=== PATIENT | female | born 1980 | race Caucasian/White ===

== ENCOUNTER 2021-05-11 13:41 | Emergency (ER) | payer OTHER, SELFPAY ==
--- NOTE | ~2021-05-11 | XR_ITS ---
EXAMINATION: XR LUMBOSACRAL SPINE CLINICAL INFORMATION: Low back pain COMPARISON: Radiographs lumbar spine 07/28/2016 TECHNIQUE: Three views of the lumbosacral spine. FINDINGS: The lateral views are obtained with patient slightly rotated. There is a mild levocurvature lumbar spine similar to prior study 2016. There is normal lumbar segmentation with 5 nonrib-bearing lumbar vertebrae of normal height. There is no lumbar vertebral compression, spondylolisthesis, or erosive changes. No destructive process. The SI joints and visualized sacrum are unremarkable. There are questionable faint calcifications overlying renal fossa region versus density from calcified mesenteric lymph node or bowel contents. Surgical clips right upper quadrant abdomen are consistent with prior cholecystectomy. XR/XR lumbar spine 2-3V IMPRESSION: 1. Mild chronic levocurvature. No lumbar vertebral compression, spondylolisthesis, disc narrowing. 2. Question faint renal calcifications.
[2021-05-11 13:46] VITALS: BP 130/83; PULSE 98; RESP 18; TEMP 36.8; O2SAT 98; BMI 33.2
[2021-05-11] MEDS: Ibuprofen 600 MG TABLET PO (13:50)
--- NOTE | 2021-05-11 15:09 | ED_ITS ---
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) Associated symptoms: denies other symptoms Treatments prior to arrival: NSAIDS Work related injury: No Related Data Previous Rx's Medication Instructions Recorded diazepam 5 mg tablet (Valium) 5 mg PO TID PRN #10 tab 05/11/21 ibuprofen 600 mg tablet 600 mg PO Q6H PRN #30 tab 05/11/21 lidocaine 4 % topical patch 1 patch TOPICAL DAILY PRN #10 ea 05/11/21 Allergies Allergy/AdvReac Type Severity Reaction Status Date / Time No Known Allergies Allergy Unverified 06/26/20 15:00 [No Known Allergies*] Review of Systems Review of Systems: Constitutional : No Weight loss, No Fever, No Chills, ENT/Mouth : No Hearing loss, No Ear Pain, No Nasal Congestion, No Sinus Pain, No Hoarseness, No sore throat, No Rhinorrhea, No Swallowing Difficulty Cardiovascular : No Chest Pain, No SOB Respiratory : No Cough, No Dyspnea Gastrointestinal : No Nausea, No Vomiting, No Diarrhea, No abdominal Pain, No Hematochezia, No Melena Genitourinary : No Dysuria, No Urinary Frequency, No Hematuria, No Urinary Incontinence, Musculoskeletal : positive back pain Skin : No Skin Lesions, No rash Neuro : No Weakness, No Numbness, No Paresthesias, no loss of bowel or bladder incontinence, no saddle anesthesia [facility] Past Medical History Medical History (Updated 05/11/21 @ 15:32 by Cassia Ruggiero DO) Chronic back pain No known health problems Scoliosis Surgical History (Updated 05/11/21 @ 15:32 by Cassia Ruggiero DO) H/O tubal ligation Social History Social History (Updated 05/11/21 @ 15:29 by Cassia Ruggiero DO) Patient Tobacco Use Status: Tobacco use Unknown Use of substances other than those prescribed or required for medical reasons: No Advance Directives: No Advance Directives Information Provided: No Patient : No Physical Exam Vital Signs: Vital Signs: Last Vital Signs Temp 98.2 F 05/11/21 13:46 Pulse 98 05/11/21 13:46 Resp 18 05/11/21 13:46 BP 130/83 05/11/21 13:46 Pulse Ox 98 05/11/21 13:46 Body Mass Index 33.2 Appearance: Alert. Oriented X3. No acute distress. Eyes: Pupils equal, round and reactive to light. ENT: Pharynx normal. Neck: Normal inspection. Neck supple. CVS: Normal heart rate and rhythm. Pulses normal. Respiratory: No respiratory distress. Breath sounds normal. Abdomen: Soft and nontender. Back: ttp middle area of lower lumbar Skin: Skin warm and dry. Normal skin color. Normal skin turgor. Extremities: No lower extremity edema. No calf ttp 5/5 strength, 2+ patellar tendon reflexes, SILT throughout Neuro: Oriented X 3. No motor deficit. No sensory deficit. Course Course Course Narrative: pain is midline, no urinary symptoms doubt renal colic MDM - Back Pain/Injury MDM Narrative Medical decision making narrative: 40 yo female no IVDA< hx of back pain and scoliosis comes in with low back pain acute on chronic she is NV intact, no CE symptoms, valium, motrin and lidocaine patches ordered, xrays to see if any progression or signs of advanced degenerative disease Discharge Plan Discharge Clinical Impression: Lumbar back pain Patient Disposition: Home, Self-Care Instructions: Acute Low Back Pain (ED) Additional Instructions: return to ED for any worsening symptoms or concerns Prescriptions: New diazepam [Valium] 5 mg tablet 5 mg PO TID PRN (Reason: muscle spasm) Qty: 10 RF: 0 ibuprofen 600 mg tablet 600 mg PO Q6H PRN (Reason: pain) Qty: 30 RF: 0 lidocaine 4 % adhesive patch,medicated 1 patch topical DAILY PRN (Reason: pain) Qty: 10 RF: 0 Referrals: Tyra Doshi MD [Primary Care Provider] - 3 days (if not better) Stand Alone Forms: Work/School Release
[2021-05-11] MEDS: diazePAM 5 MG TABLET PO (15:49)
[2021-05-11] MEDS: Lidocaine 4 % Patch ADH..PATCH 1 PATCH TRANSDERMA (15:49)
== END 2021-05-11 16:36 | disposition home or self-care (01) ==
PROVIDERS: Emergency Provider Emergency Medicine; PCP Pediatrics
DX: M54.5 Low back pain (principal); M41.9 Scoliosis, unspecified
CPT/HCPCS: 72100; 99283

== ENCOUNTER 2021-05-20 07:28 | Emergency (ER) | payer OTHER, SELFPAY ==
[2021-05-20 07:29] VITALS: BP 128/69; PULSE 96; RESP 16; TEMP 35.8; O2SAT 98; BMI 33.2
--- NOTE | 2021-05-20 08:04 | ED_ITS ---
HPI - Back Pain/Injury General Chief Complaint: Back Pain/Injury Stated Complaint: back pain Time Seen by Provider: 05/20/21 07:52 Source: patient Mode of arrival: ambulatory Limitations: no limitations History of Present Illness HPI Narrative: 40-year-old female who presents emergency department for evaluation of lower back pain. Patient states that she has had the pain for approximately 1 week. She does not remember any injury. She was seen here in the emergency department on 05/11/2021 with similar pain. She was treated with ibuprofen, lidocaine patches and Valium with no relief for pain. She has also been alternating heat and ice with no relief for pain. is currently complaining of pain in her lower back. She states the pain is a constant, sharp pain which does radiate down both legs. She states the pain is worse in the right leg than in the left leg. The pain in her back is 10/10. The pain is worse with movement and is relieved if she lies still. She states that her right leg did give out on her yesterday but she denies any weakness today. She denied any loss of bowel or bladder control. She denied fever, chills, chest pain, shortness of breath, nausea, vomiting or diarrhea. She denies injection drug use. Related Data Previous Rx's Medication Instructions Recorded diazepam 5 mg tablet (Valium) 5 mg PO TID PRN #10 tab 05/11/21 ibuprofen 600 mg tablet 600 mg PO Q6H PRN #30 tab 05/11/21 lidocaine 4 % topical patch 1 patch TOPICAL DAILY PRN #10 ea 05/11/21 cyclobenzaprine 10 mg tablet 10 mg PO TID PRN #15 tab 05/20/21 morphine 15 mg immediate release 15 mg PO Q4-6H PRN #6 tab 05/20/21 tablet prednisone 20 mg tablet 60 mg PO DAILY 7 Days #21 tab 05/20/21 Allergies Allergy/AdvReac Type Severity Reaction Status Date / Time No Known Allergies Allergy Unverified 06/26/20 15:00 [No Known Allergies*] Review of Systems Review of Systems: Yes all other systems are reviewed and are negative [facility] Past Medical History [facility] Narrative: Past medical history: Scoliosis. Past surgical history: Cholecystectomy, . Social history: The patient is employed. She smokes less than 1 pack of cigarettes per day times 10 years. She denies alcohol use. She denies drug use. Medical History (Updated 05/20/21 @ 08:15 by Kurt Garcia MD) Chronic back pain No known health problems Scoliosis Surgical History (Updated 05/11/21 @ 15:32 by Cassia Ruggiero DO) H/O tubal ligation Social History Social History (Updated 05/11/21 @ 15:29 by Cassia Ruggiero DO) Patient Tobacco Use Status: Tobacco use Unknown Advance Directives: No Advance Directives Information Provided: No Physical Exam Vital Signs: Vital Signs: Last Vital Signs Temp 96.5 F L 05/20/21 07:29 Pulse 96 05/20/21 07:29 Resp 16 05/20/21 07:29 BP 128/69 05/20/21 07:29 Pulse Ox 98 05/20/21 07:29 Body Mass Index 33.2 Const: Other: Very pleasant and cooperative female, appears to be in distress secondary to her pain, has difficulty moving on the stretcher secondary to pain and spasm of her back HENMT: Head: Yes normal to inspection, Yes normocephalic and Yes atraumatic Ears: external ears normal General nose exam: Normal external nose present Face and sinus: Yes normal facial exam Mouth: Normal oral and palatal mucosa present Throat: Yes posterior oropharynx normal Eyes: General: appearance normal, both eyes and all related structures Pupils: Equal, round and reactive pupils present Neck: Neck: Yes normal visual inspection, Yes no lymphadenopathy, Yes trachea midline and Yes supple Chest: Chest palpation & inspection: normal inspection of the chest and normal palpation of entire chest wall Resp: Effort & Inspection: normal respiratory effort and able to speak in complete sentences Auscultation: clear to auscultation bilaterally Cardio: Rate: regular rate Rhythm: regular rhythm Heart sounds: S1 normal heart sound present, S2 normal heart sound present and no murmurs GI: Inspection: Yes normal to inspection Palpation (GI): Soft to palpation, nontender and no guarding Auscultation: normal bowel sounds : General: Yes no CVA tenderness Back/Spine/Pelvis: Back: no CVA tenderness Thoracic/Lumbar Spine: thoracic and lumbar spine normal to inspection, paraspinal muscle tenderness bilaterally in the mid lumbar and in the lower lumbar, thoraco-lumbar spasm bilaterally in the mid lumbar and in the lower lumbar, lumbar spinal tenderness at L1, at L2, at L3, at L4 and at L5 and straight leg raise positive right Skin: General skin exam: no rashes or lesions noted Neuro: Cranial nerves: Yes CN's II-XII intact bilaterally and Yes Equal, round and reactive pupils present Cognition (Neuro): normal cognition Motor exam (neuro): 5/5 motor strength present throughout Extrem: General: Yes normal to inspection Psych: Appearance: grossly normal Speech and movement: Normal speech and movement present Affect: normal affect Attitude: cooperative Thought process: Normal thought process present Thought content: Normal thought content present Course Course Course Narrative: 40-year-old female who presents emergency department for evaluation of lower back pain that radiates down both legs right greater than left x1 week. Patient had no known injury. The patient was seen 1 week prior in the emergency department treated with ibuprofen, Valium and lidocaine patches with no relief for pain. Patient does appear to be in distress secondary to her pain. Physical examination did reveal tenderness with palpation of the lumbar spine as well as the paraspinal muscles in lumbar sacral area, she also has spasm of these muscles. Patient does have a positive right straight leg raise. The patient has a nonfocal neurologic exam. Patient most likely has musculoskeletal strain versus sciatica. Patient was advised to stop taking ibuprofen. She was started on prednisone 60 mg once a day for 7 days. She was advised to stop Valium and she was started on Flexeril 10 mg 3 times a day as needed for pain and spasm. Patient was given a limited dose of morphine 15 mg pills, 1 pill every 4-6 hours as needed for pain not relieved by prednisone and by Tylenol. Patient was given a work note not return to work in 1 week. The patient was given verbal and printed instructions prior to discharge. The patient was advised to follow-up with her PCP in 2 days and to return to the emergency department if her symptoms get worse or if she develops any new symptoms that are concerning to her. Discharge Plan Discharge Clinical Impression: Muscle spasm Strain of lumbar region Qualifiers: Encounter type: subsequent encounter Qualified Code(s): S39.012D - Strain of muscle, fascia and tendon of lower back, subsequent encounter Sciatica Qualifiers: Laterality: right Qualified Code(s): M54.31 - Sciatica, right side Patient Disposition: Home, Self-Care Instructions: Sciatica (ED) Additional Instructions: Back Pain Discharge Instructions: Take prednisone 20 mg pills, 3 pills once a day for 7 days. This is a strong anti-inflammatory pain medication. While you are taking prednisone do not take any NSAIDs (Motrin, Advil, ibuprofen, Aleve, naproxen). Take Tylenol (acetaminophen) 500 mg pills, 2 pills every 6 hours as needed for pain. Take Flexeril (cyclobenzaprine) 10 mg pills, 1 pill every 8 hours as needed for pain or muscle spasm. This is a prescription medication. This medication will make you sleepy, therefore do not drive or work while taking this medication. Stop taking Valium (diazepam) while you are taking cyclobenzaprine. For pain not relieved by prednisone or Tylenol take morphine 15 mg pills, 1 pill every 4 hours as needed for pain. This medication will make you sleepy, do not drive or work while taking this medication. Morphine is a narcotic medication and can be addicting. If you are concerned about addiction you can ask the pharmacist for less pills or do not get this prescription filled. Apply ice for 15 minutes to the area that hurts on your back, then apply a heating a pad on low for 15 minutes. Do this 4-6 times a day to help reduce the pain in your back. Continue with normal activities as tolerated since staying in bed and not moving around will make your pain worse. You can also try over the counter lidocaine patches as directed on the box to help with the pain. Please return to the Emergency Department or see your doctor immediately if your symptoms get worse or if you develop any new symptoms that are concerning you. Follow up with your doctor in 2 day. Please read the other printed discharge instructions on back pain. Prescriptions: New cyclobenzaprine 10 mg tablet 10 mg PO TID PRN (Reason: pain, muscle spasm) Qty: 15 RF: 0 prednisone 20 mg tablet 60 mg PO DAILY 7 Days Qty: 21 RF: 0 morphine 15 mg tablet 15 mg PO Q4-6H PRN (Reason: pain) Qty: 6 RF: 0 No Action diazepam [Valium] 5 mg tablet 5 mg PO TID PRN (Reason: muscle spasm) Qty: 10 RF: 0 ibuprofen 600 mg tablet 600 mg PO Q6H PRN (Reason: pain) Qty: 30 RF: 0 lidocaine 4 % adhesive patch,medicated 1 patch topical DAILY PRN (Reason: pain) Qty: 10 RF: 0 Stand Alone Forms: Work/School Release
== END 2021-05-20 08:31 | disposition home or self-care (01) ==
PROVIDERS: Emergency Provider Emergency Medicine Emergency Medical Services
DX: M62.838 Other muscle spasm (principal); M54.31 Sciatica, right side; S39.012D Strain of muscle, fascia and tendon of lower back, subsequent encounter; X58.XXXD Exposure to other specified factors, subsequent encounter
CPT/HCPCS: 99283

== ENCOUNTER 2021-10-25 11:46 | Emergency (ER) | payer OTHER, SELFPAY ==
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
[2021-10-25 12:06] VITALS: BP 154/78; PULSE 108; RESP 16; TEMP 36; O2SAT 97; BMI 35.2
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
[2021-10-25] MEDS: Acetaminophen 325 MG TABLET 975 MG PO (12:33)
== END 2021-10-25 14:00 | disposition home or self-care (01) ==
PROVIDERS: Emergency Provider Emergency Medicine
DX: S09.90XA Unspecified injury of head, initial encounter (principal); S80.02XA Contusion of left knee, initial encounter; M25.562 Pain in left knee; M25.561 Pain in right knee; V43.52XA Car driver injured in collision with other type car in traffic accident, initial encounter; Y93.9 Activity, unspecified; Y92.410 Unspecified street and highway as the place of occurrence of the external cause; Y99.9 Unspecified external cause status; Z79.899 Other long term (current) drug therapy
CPT/HCPCS: 70450; 99284

== ENCOUNTER 2023-10-05 14:21 | Outpatient (AMB) | payer OTHER, SELFPAY ==
[2023-10-05 14:37] VITALS: BMI 39.2
--- NOTE | 2023-10-05 14:37 | MHC.AMNUTRGE ---
Intake VS Expanded 10/05/23 14:37 10/17/23 10:53 Height 5 ft 5 ft Weight 200 lb 13.458 oz 201 lb BMI 39.2 39.3 Intake Visit Reasons: Obesity & Pre DM/LVM Allergies No Known Allergies [No Known Allergies*] Allergy (Unverified 06/26/20 15:00) HPI Nutrition Presentation Details Pt presents for MNT for pre diabetes, severely obese. The Pt was referred by SHERIE Rucker/ Dr. Lizzeth Real from [facility] food frequency fish: 0/wk fruits: 0/day vegetables: 2 x/wk (salad/green beans) dairy: not including milk d/t lactose intolerance, avoids alternatives as well physical activity: on feet at work smoking: quit 2 years (reports weight was 150 lbs 2 years ago prior to quitting) ETOh: does not drink iron supplement : reports taking 2 times/day YIV-Jczmbtn-Ak.Jeor Equation Height 5 ft Weight 201 lb Resting Metabolic Rate 1495.67 Calculated Activity Level Mild Activity Calories Needed to Maintain Weight 2055.55 Diagnosis Nutrition problem #1 food nutri know defi As related to (etiology) #1 diagnosis As evidenced by (sign/symptom) #1 food recall and high BMI (39.2 on 09/2023) Most Recent Diabetes Results: No Data to Display [facility] Medical History (Updated 10/05/23 @ 14:44 by Amna Arriaga, RD, LDN) Chronic back pain Scoliosis No known health problems Surgical History (Updated 05/11/21 @ 15:32 by Beryl Ruggiero DO) H/O tubal ligation Social History (Updated 05/11/21 @ 15:29 by Beryl Ruggiero DO) Patient Tobacco Use Status: Tobacco use Unknown Assessment & Plan Assessment & Plan (1) IFG (impaired fasting glucose): Code(s): R73.01 - Impaired fasting glucose Plan: wt: 91 kg Est kcal needs as per MSJ: 2000-250= 1800 (40% carb, 30% protein/fat) Est fluid needs as per 25-30 ml/d: 2700 Est prot per day as per 1 g/kg bw: 91g Recommend fiber intake : 8-10 g per day and gradually increase to 25-28 g per day for women and 35-38 g for men or as tolerated Recommend sodium intake per day : less than 1500 mg less than 2000 mg Educated patient on: ( R = reviewed V = verbalizes understanding N/R = needs review N/A = not applicable Food sources of carbohydrate, adequate serving sizes and its role in various health conditions: R Differences between complex carbohydrates a simple carbohydrates, role of fiber in diet: R V R/V Differences between types of fats and role in diet (mono on saturated fat fatty acids, saturated fatty acids, trans fats): R V R/V Food sources of sodium in salt and healthy modifications for heart health in kidney health: R V R/V Vitamins and minerals: R Healthy plate method concept: R V Physical activity: Benefits a precaution: R Hypoglycemia protocol (rule of 15): NR Dietary prevention of Hyperglycemia: R Patient Instructions: Work on reducing sugars (beverages/pastries and the like) Reduce total carbs at meals to 60-70 g following healthy plate method Practice mindful eating Include food sources of calcium see meal plan ideas as reference Coding Level of Care Code Nutr Indiv Intake (41671) Diagnoses IFG (impaired fasting glucose) R73.01 Time Spent (min) 30
[2023-10-17 10:53] VITALS: BMI 39.3
== END 2023-10-05 15:05 | disposition home or self-care (01) ==
PROVIDERS: PCP Physician Assistant; Visit Provider Dietitian, Registered
DX: R73.01 Impaired fasting glucose (principal)

== ENCOUNTER → 2023-10-05 14:21 | Outpatient (BNVA) | payer OTHER, SELFPAY | PROVIDERS: PCP Physician Assistant; Visit Provider Dietitian, Registered | DX: R73.01 Impaired fasting glucose (principal); E66.9 Obesity, unspecified; Z68.39 Body mass index [BMI] 39.0-39.9, adult; Z71.3 Dietary counseling and surveillance | CPT/HCPCS: 97802 ==

== ENCOUNTER 2023-11-09 13:56 | Emergency (ER) | payer OTHER, SELFPAY ==
--- NOTE | ~2023-11-09 | XR_ITS ---
Examination: Bilateral knee, left foot and left ankle. Clinical indications: Fall. TECHNIQUE: Bilateral knee 4 views each. Left foot 3 views. Left ankle 3 views. FINDINGS: LEFT KNEE: There is mild loss of tricompartment joint space without periarticular spurring. No loose bodies, joint effusion or bony erosive changes seen. RIGHT KNEE: There is mild loss of tricompartment joint space without acute fracture, loose bodies, joint effusion or dislocation. The soft tissues are normal. LEFT ANKLE: The ankle mortise and subtalar joints are normal. No visible acute fracture or dislocation seen. There is mild lateral malleolar soft tissue swelling likely ligamentous injury. LEFT FOOT: The intertarsal, tarsometatarsal, metatarsophalangeal and interphalangeal joints are normal. No visible acute fracture, dislocation or subluxation seen. XR/XR foot LT min 3V IMPRESSION: 1. Mild lateral malleolar soft tissue swelling left ankle likely ligamentous injury. No visible acute fracture or dislocation seen. 2. Unremarkable bilateral knee exam except for minimal loss of tricompartment joint space. 3. Unremarkable left foot exam.
--- NOTE | ~2023-11-09 | XR_ITS ---
Examination: Bilateral knee, left foot and left ankle. Clinical indications: Fall. TECHNIQUE: Bilateral knee 4 views each. Left foot 3 views. Left ankle 3 views. FINDINGS: LEFT KNEE: There is mild loss of tricompartment joint space without periarticular spurring. No loose bodies, joint effusion or bony erosive changes seen. RIGHT KNEE: There is mild loss of tricompartment joint space without acute fracture, loose bodies, joint effusion or dislocation. The soft tissues are normal. LEFT ANKLE: The ankle mortise and subtalar joints are normal. No visible acute fracture or dislocation seen. There is mild lateral malleolar soft tissue swelling likely ligamentous injury. LEFT FOOT: The intertarsal, tarsometatarsal, metatarsophalangeal and interphalangeal joints are normal. No visible acute fracture, dislocation or subluxation seen. XR/XR knee LT 4V IMPRESSION: 1. Mild lateral malleolar soft tissue swelling left ankle likely ligamentous injury. No visible acute fracture or dislocation seen. 2. Unremarkable bilateral knee exam except for minimal loss of tricompartment joint space. 3. Unremarkable left foot exam.
--- NOTE | ~2023-11-09 | XR_ITS ---
Examination: Bilateral knee, left foot and left ankle. Clinical indications: Fall. TECHNIQUE: Bilateral knee 4 views each. Left foot 3 views. Left ankle 3 views. FINDINGS: LEFT KNEE: There is mild loss of tricompartment joint space without periarticular spurring. No loose bodies, joint effusion or bony erosive changes seen. RIGHT KNEE: There is mild loss of tricompartment joint space without acute fracture, loose bodies, joint effusion or dislocation. The soft tissues are normal. LEFT ANKLE: The ankle mortise and subtalar joints are normal. No visible acute fracture or dislocation seen. There is mild lateral malleolar soft tissue swelling likely ligamentous injury. LEFT FOOT: The intertarsal, tarsometatarsal, metatarsophalangeal and interphalangeal joints are normal. No visible acute fracture, dislocation or subluxation seen. XR/XR knee RT 4V IMPRESSION: 1. Mild lateral malleolar soft tissue swelling left ankle likely ligamentous injury. No visible acute fracture or dislocation seen. 2. Unremarkable bilateral knee exam except for minimal loss of tricompartment joint space. 3. Unremarkable left foot exam.
--- NOTE | ~2023-11-09 | XR_ITS ---
Examination: Bilateral knee, left foot and left ankle. Clinical indications: Fall. TECHNIQUE: Bilateral knee 4 views each. Left foot 3 views. Left ankle 3 views. FINDINGS: LEFT KNEE: There is mild loss of tricompartment joint space without periarticular spurring. No loose bodies, joint effusion or bony erosive changes seen. RIGHT KNEE: There is mild loss of tricompartment joint space without acute fracture, loose bodies, joint effusion or dislocation. The soft tissues are normal. LEFT ANKLE: The ankle mortise and subtalar joints are normal. No visible acute fracture or dislocation seen. There is mild lateral malleolar soft tissue swelling likely ligamentous injury. LEFT FOOT: The intertarsal, tarsometatarsal, metatarsophalangeal and interphalangeal joints are normal. No visible acute fracture, dislocation or subluxation seen. XR/XR ankle LT 2V IMPRESSION: 1. Mild lateral malleolar soft tissue swelling left ankle likely ligamentous injury. No visible acute fracture or dislocation seen. 2. Unremarkable bilateral knee exam except for minimal loss of tricompartment joint space. 3. Unremarkable left foot exam.
[2023-11-09 14:38] VITALS: BP 139/83; PULSE 79; RESP 18; TEMP 36.7; O2SAT 97; BMI 39.1
--- NOTE | 2023-11-09 14:44 | ED_ITS ---
HPI - General Adult General Chief complaint: Fall Stated complaint: R/L Leg Ankle and Lip Pain S/P Fall 11/09/23 Time Seen by Provider: 11/09/23 15:08 Source: patient Mode of arrival: ambulatory Limitations: no limitations History of Present Illness HPI narrative: Patient is a 43 yr old female with no significant past medical history presenting s/p unwitnessed forward fall bring out her trash this morning. Clarisse rojas reports she trips on the last step of the stairs and feel forward onto her hands and knees. She denies LOC or head strike, but did hit her upper lip on the step. Denies lightheadedness or dizziness at time of fall or preceding sx. She reports 5/10 pain of the upper lip and 8/10 achy pain in her left ankle. She reports she scraped both knees. Denies headache, n/v/d, abdominal pain, chest pain, SOB, vision changes, hearing changes, numbness or tingling in upper and lower extremitites. Not on thinners. Tetanus status unclear. Related Data Previous Rx's Medication Instructions Recorded diazepam 5 mg tablet (Valium) 5 mg PO TID PRN muscle spasm #10 05/11/21 tabs ibuprofen 600 mg tablet 600 mg PO Q6H PRN pain #30 tabs 05/11/21 lidocaine 4 % topical patch 1 patch topical DAILY PRN pain #10 05/11/21 ea cyclobenzaprine 10 mg tablet 10 mg PO TID PRN pain, muscle 05/20/21 spasm #15 tabs morphine 15 mg immediate release 15 mg PO Q4-6H PRN pain #6 tabs 05/20/21 tablet prednisone 20 mg tablet 60 mg (3 x 20 mg) PO DAILY 7 days 05/20/21 #21 tabs ketorolac 10 mg tablet 10 mg PO TID PRN pain 5 days #15 11/09/23 tabs Allergies Allergy/AdvReac Type Severity Reaction Status Date / Time No Known Allergies Allergy Unverified 06/26/20 15:00 [No Known Allergies*] Review of Systems Review of Systems: Yes all other systems are reviewed and are negative [facility] Past Medical History Attestation statement: The following information was validated with the patient. Source: old records reviewed and nursing notes reviewed Medical History (Updated 11/09/23 @ 16:42 by SHERIE Reynolds) Chronic back pain Scoliosis No known health problems Surgical History (Updated 05/11/21 @ 15:32 by Beryl Ruggiero DO) H/O tubal ligation Social History Social History (Updated 05/11/21 @ 15:29 by Beryl Ruggiero DO) Patient Tobacco Use Status: Tobacco use Unknown Advance Directives: No Advance Directives Information Provided: No Physical Exam ED Vital Signs: Vital Signs - 24 hr 11/09/23 14:38 11/09/23 17:17 Temperature 98.1 F 98.0 F Pulse Rate 79 76 Respiratory Rate 18 18 Blood Pressure 139/83 141/79 H Pulse Oximetry 97 97 Oxygen Delivery Method Room Air Room Air BMI result Body Mass Index 39.1 vs wnl Appearance: Alert.? Oriented X3.? No acute distress.? Head: Normocephalic, atraumatic, no step-offs or deformities Eyes: Pupils equal, round and reactive to light.? ENT: 0.5 centimeter laceration of the mid upper lip with localized edema ( w/ scabbing). No broken teeth. Pharynx normal.??External ears normal, TMs normal bilaterally and EAC's normal. No pain with manipulation of external ears bilaterally. No mastoid tenderness. Neck: Normal inspection.? Neck supple.? CVS: Normal heart rate and rhythm.? Pulses normal.?No signs of pain or bruising Respiratory: No respiratory distress.? Breath sounds normal.? Abdomen: Soft and nontender.?No signs of bruising or pain Skin: Skin warm and dry.? Normal skin color.? Normal skin turgor.? Extremities: No lower extremity edema.? No calf ttp. 5/5 strength to bilateral upper and lower extremities. Localized edema and tenderness to palpation of the anterior and lateral left ankle. 2+ PT and DP pulses. Bilateral abrasions inferior to knee. Full ROM of bilateral knees and ankles. Neuro: Oriented X 3.? No motor deficit.? No sensory deficit. CN 2-12 intact . Ambulatory w/ steady gait normal coordination . Normal [id number]-[id number], [id number]-[id number]. GCS-15 NIHSS-0 Course Course Course Narrative: RME: 43 yold female presents to the ED for left ankle and bilateral knee pain. past has upper lip laceration. patient states she did not hit head on her face. she gathered herself with her hands before falling and only her upper lip hit the floor. Patient states no headache, nausea, vomiting, or facial pain. X-ray lower extremity ordered. Reevaluation(s) Reevaluation #1: Toradol initiated for pain management. Xray revealed mild lateral malleolar soft tissue swelling left ankle likely ligamentous injury. No visible acute fracture or dislocation seen. Unremarkable bilateral knee exam except for minimal loss of tricompartment joint space. Unremarkable left foot exam. Time: 15:45 Reevaluation #2: Will place patient in a stirrup and given crutches. Advised to follow-up with PCP and Orthopedics. Educated patient on diagnosis and treatment plan, answered all question, patient verbalizes understanding. At this time patient will be discharged home, advised to return with new or worsening symptoms. Educated on worrisome signs and symptoms and when to return. At this time I feel comfortable discharge home. Medications Administered Discontinued Medications Generic Name Dose Route Start Last Admin Trade Name Freq PRN Reason Stop Dose Admin Diphtheria/Tetanus/Acell Pertussis 0.5 ml 11/09/23 16:36 11/09/23 17:12 Diphth,Pertus(Acell),Tet Adult 0.5 Ml Syringe IM 11/09/23 16:37 0.5 ml .ONCE ONE Administration Ketorolac Tromethamine 30 mg 11/09/23 15:43 11/09/23 16:02 Ketorolac Tromethamine 15 Mg/Ml Vial IM 11/09/23 15:44 30 mg ONCE ONE Administration Medical Decision Making Medical Decision Making [facility] Narrative: Patient is a 43 yr old female with no significant past medical history presenting s/p unwitnessed forward fall bring out her trash this morning. No headstrike. Fell forward on hands and knees. Not on thinners. PE significant for bilateral inferior knee abrasions with mild edema. Tenderness to palpation with edema to anterior and lateral left ankle. Full ROM intact in bilateral upper and lower extremities. 0.5 centimeter abrasion of mid upper lip. Most likely ankle sprain. Unlikely fracture/ dislocation of ankle due to lack of point tenderness. Compartment syndrome unlikely due to presence of palpable pulses, warm extremities. No NV compromise or threat to limb. Unlikely ICH/stroke/ posterior stroke. No signs of traumatic injury to chest/abd/pelvis. Plan imaging, pain management. Differential Diagnosis Differential Diagnoses: The differential diagnosis associated with the presentation includes Most likely ankle sprain. Unlikely fracture/ dislocation of ankle due to lack of point tenderness. Compartment syndrome unlikely due to presence of palpable pulses, warm extremities. No NV compromise or threat to limb. Unlikely ICH/stroke/ posterior stroke. No signs of traumatic injury to chest/abd/pelvis. Admission/Observation Consideration of admission/observation: Escalation of care including admission/observation considered Independent Interpretation I performed an independent interpretation of an: Plain X-Ray (XR/XR ankle LT 2V IMPRESSION: 1. Mild lateral malleolar soft tissue swelling left ankle likely ligamentous injury. No visible acute fracture or dislocation seen. 2. Unremarkable bilateral knee exam except for minimal loss of tricompartment joint space. 3. Unremarkable left foot exam. ) Radiology Impression Discussion of test interpretation with radiology: I have reviewed the radiologist's reading. Radiologist Impression: XR/XR ankle LT 2V IMPRESSION: 1. Mild lateral malleolar soft tissue swelling left ankle likely ligamentous injury. No visible acute fracture or dislocation seen. 2. Unremarkable bilateral knee exam except for minimal loss of tricompartment joint space. 3. Unremarkable left foot exam. External Record Review External record reviewed: Inpatient record, Office record, Outpatient record, Prior outpatient radiology, Primary care record and Outside ED record Tests considered The following testing was considered but not selected: Head/Neck CT considered but not selected due to lack of headstrike, LOC, as well as intact neurological exam. CT Unnecessary The [place] Head CT Rule suggests a head CT is not necessary for this patient (sensitivity 83-100% for all intracranial traumatic findings, sensitivity 100% for findings requiring neurosurgical intervention). Prescription Management I considered prescription management with: Pain Medication Core Measures AMI core measures followed: Yes Discharge Plan Discharge Clinical Impression: Concussion without loss of consciousness, Laceration of lip Ankle sprain Qualifiers: Encounter type: initial encounter Involved ligament of ankle: unspecified ligament Laterality: left Qualified Code(s): S93.402A - Sprain of unspecified ligament of left ankle, initial encounter Fall Qualifiers: Encounter type: initial encounter Qualified Code(s): W19.XXXA - Unspecified fall, initial encounter Patient Disposition: Home, Self-Care Instructions: Concussion (ED), Post Concussion Syndrome (ED), R.I.C.E. Treatment (ED) Additional Instructions: Take your medications as prescribed. If you were prescribed antibiotics today, it is important that you take your medication to their entirety, do not skip any doses, do not finish them early. Follow-up with your primary care provider this week. Follow up with ortho in a week if needed Return to the emergency department with new or worsening symptoms. In case of emergency call 911 Toradol has been sent to your pharmacy, you tolerated this well in the department. Please take this as prescribed do not take this with ibuprofen, or other NSAIDs, do not mix this with alcohol. Side effects of this medication including increased risk for bleeding and possible kidney injury. FINDINGS: LEFT KNEE: There is mild loss of tricompartment joint space without periarticular spurring. No loose bodies, joint effusion or bony erosive changes seen. RIGHT KNEE: There is mild loss of tricompartment joint space without acute fracture, loose bodies, joint effusion or dislocation. The soft tissues are normal. LEFT ANKLE: The ankle mortise and subtalar joints are normal. No visible acute fracture or dislocation seen. There is mild lateral malleolar soft tissue swelling likely ligamentous injury. LEFT FOOT: The intertarsal, tarsometatarsal, metatarsophalangeal and interphalangeal joints are normal. No visible acute fracture, dislocation or subluxation seen. Prescriptions: New ketorolac 10 mg tablet 10 mg PO TID PRN (Reason: pain) 5 Days Qty: 15 0RF No Action cyclobenzaprine 10 mg tablet 10 mg PO TID PRN (Reason: pain, muscle spasm) Qty: 15 0RF prednisone 20 mg tablet 60 mg PO DAILY 7 Days Qty: 21 0RF morphine 15 mg tablet 15 mg PO Q4-6H PRN (Reason: pain) Qty: 6 0RF Rx Instructions: The patient may ask for partial fill diazepam [Valium] 5 mg tablet 5 mg PO TID PRN (Reason: muscle spasm) Qty: 10 0RF ibuprofen 600 mg tablet 600 mg PO Q6H PRN (Reason: pain) Qty: 30 0RF lidocaine 4 % adhesive patch,medicated 1 patch topical DAILY PRN (Reason: pain) Qty: 10 0RF Rx Instructions: may leave on for up to 12 hrs Referrals: [facility] [Provider Group] - 1 week Miladis Palmer PA-C [Primary Care Provider] - 2 days Stand Alone Forms: Work/School Release Interventions: ED Discharge Assessment Last Done: 11/09/23 17:18 Discharge Date/Time: 11/09/23 17:19
[2023-11-09] MEDS: Ketorolac Tromethamine 15 MG/ML VIAL 30 MG IM (16:02)
--- NOTE | 2023-11-09 16:04 | PC.NURSE ---
patient a&ox3, c/o 05/19 lle pain, pt medicated for pain per order, call [place] within reach, will continue to monitor
--- NOTE | 2023-11-09 16:57 | MHC.EDTECH ---
PT REFUSED CRUTCHES AT THIS TIME STATING I CANT WALK WITH THOSE . SHERIE ELIZONDO AWARE. AIRCAST WAS PLACED ON PT WITH [facility]
[2023-11-09] MEDS: Diphth,Pertus(ACell),Tet Adult 0.5 ML SYRINGE IM (17:12)
[2023-11-09 17:17] VITALS: BP 141/79; PULSE 76; RESP 18; TEMP 36.7; O2SAT 97
== END 2023-11-09 17:19 | disposition home or self-care (01) ==
PROVIDERS: Emergency Provider Emergency Medicine; PCP Physician Assistant
DX: S06.0X0A Concussion without loss of consciousness, initial encounter (principal); S93.402A Sprain of unspecified ligament of left ankle, initial encounter; S01.511A Laceration without foreign body of lip, initial encounter; W10.8XXA Fall (on) (from) other stairs and steps, initial encounter; Y93.E9 Activity, other interior property and clothing maintenance; Y92.018 Other place in single-family (private) house as the place of occurrence of the external cause; Y99.9 Unspecified external cause status; Z23 Encounter for immunization
CPT/HCPCS: 73564; 73600; 73630; 90471; 90715; 96372; 99284; J1885

== ENCOUNTER 2023-11-25 10:54 | Outpatient (AMB) | payer OTHER, SELFPAY ==
--- NOTE | 2023-11-25 10:57 | MHC.OFFVIS ---
Intake Vital Signs 11/25/23 10:59 Height 5 ft Weight 200 lb BMI 39.1 Intake Visit Reasons: New Pt - left ankle injury Intake Note: Anastasia is a 43 year old female who presents today for as a new patient for a evaluation of her left ankle pain, DOI 11/09/23. Patient feel forward when she was bringing out her trash in the morning. She reports she also missed stepped on the driveway and feel forward onto her hands and knees. She states her pain is more focused on the left side of the ankle. Pain is worse at night she tends to get a throbbing pain. Allergies oxycodone Allergy (Intermediate, Verified 11/25/23 11:08) Rash Penicillins Allergy (Intermediate, Verified 11/25/23 11:08) Rash HPI New Pt - left ankle injury HPI Details 43-year-old female who presents in the office today, as a new patient, for an evaluation of bilateral ankle pain. The patient presented to the ED on 11/09/2023 status post a fall while she was taking out her trash where she tripped over a step on the stairs. X-rays were obtained. The patient was placed in stirrup splint and given crutches. While in the office today the patient reports she missed a step in her driveway which caused her to fall forward on to her hands and knees. She claims her pain is more focused on the left side of the left ankle. She reports an increase in pain at night and describes it as throbbing. [facility] Medical History (Updated 11/25/23 @ 11:48 by Mckayla Cheema) Chronic back pain Scoliosis No known health problems Surgical History (Updated 05/11/21 @ 15:32 by Beryl Ruggiero DO) H/O tubal ligation Social History (Updated 11/25/23 @ 11:12 by Ezequiel Arriaga) Alcohol intake: never Patient Tobacco Use Status: Tobacco use Unknown Current occupational status: unemployed Review of Systems Const All systems reviewed & are unremarkable except as noted in HPI and below Physical Exam Vital Signs: BMI result Body Mass Index 39.1 Const General: cooperative and no acute distress Orientation/consciousness: patient oriented x3 Resp Effort & Inspection: normal respiratory effort and able to speak in complete sentences Cardio Peripheral pulses: Peripheral pulses 2+ throughout Skin General skin exam: no rashes or lesions noted Neuro General: patient oriented x3 Extrem Other: Left foot/ankle: Normal to inspection. No ecchymosis or erythema. Mild edema over the lateral malleolus, accompanied by tenderness to palpation. Patient is able to demonstrate dorsiflexion, plantar flexion, pronation and supination. Negative anterior drawer. Sensation intact. Pedal Pulse intact. Assessment & Plan Assessment & Plan (1) Left ankle sprain: Code(s): S93.402A - Sprain of unspecified ligament of left ankle, initial encounter Qualifiers: Encounter type: initial encounter Involved ligament of ankle: unspecified ligament Qualified Code(s): S93.402A - Sprain of unspecified ligament of left ankle, initial encounter Plan Ms. Sim is a 43-year-old female who presents in the office today, as a new patient, for an evaluation of bilateral ankle pain. The patient presented to the ED on 11/09/2023 status post a fall while she was taking out her trash where she tripped over a step on the stairs. X-rays were obtained. The patient was placed in stirrup splint and given crutches. While in the office today the patient reports she missed a step in her driveway which caused her to fall forward on to her hands and knees. She claims her pain is more focused on the left side of the left ankle. She reports an increase in pain at night and describes it as throbbing. The patient was placed in a tall walking boot, off the shelf, while in the office today. She may weight bear as tolerated. An order has been placed for the patient to attend physical therapy with the goal of weaning out of the boot in 2 weeks. Follow up will be in 6 weeks, or sooner if needed. X-rays of the left foot/ankle which were obtained while in the office today and were reviewed by me, Veronica Son PA-C, revealed no acute fracture or dislocation. X-rays of the left foot/ankle, obtained on 11/09/2023. revealed: LEFT ANKLE: The ankle mortise and subtalar joints are normal. No visible acute fracture or dislocation seen. There is mild lateral malleolar soft tissue swelling likely ligamentous injury. LEFT FOOT: The intertarsal, tarsometatarsal, metatarsophalangeal and interphalangeal joints are normal. No visible acute fracture, dislocation or subluxation seen. Orders: Orders PT Evaluation and Treatment Today S93.402A - Sprain of unspecified ligament of left ankle, initial encounter Patient Instructions: Scribed by Mckayla Cheema medical certification specialist, for Veronica Son PA-C on 11/25/2023 at 11:00 am, EST. Coding Level of Care Code New Pt Level 4 (57807) Diagnoses Sprain of left ankle, unspecified ligament, initial encounter S93.402A Encounter type: initial encounter Involved ligament of ankle: unspecified ligament
[2023-11-25 10:59] VITALS: BMI 39.1
== END 2023-11-25 11:33 | disposition home or self-care (01) ==
PROVIDERS: PCP Physician Assistant; Visit Provider Physician Assistant
DX: S93.402A Sprain of unspecified ligament of left ankle, initial encounter (principal)
CPT/HCPCS: 99204

== ENCOUNTER → 2023-11-25 10:54 | Outpatient (BNVA) | payer OTHER, SELFPAY | PROVIDERS: PCP Physician Assistant; Visit Provider Physician Assistant | DX: S93.402A Sprain of unspecified ligament of left ankle, initial encounter (principal) | CPT/HCPCS: 73610; 99202 ==

== ENCOUNTER 2023-12-02 08:44 | Outpatient (REF) | payer OTHER, SELFPAY ==
--- NOTE | ~2023-12-02 | XR_ITS ---
EXAMINATION: XR ANKLE, LEFT CLINICAL INFORMATION: Pain in unspecified ankle and joints are unspecified foot. COMPARISON: Left ankle radiographs 11/09/2023. TECHNIQUE: 3 views of the left ankle. FINDINGS: Soft tissue swelling particularly along the medial aspect of the ankle. Joint effusion. Alignment preserved. No displaced fracture appreciated XR/XR ankle LT min 3V IMPRESSION: Soft tissue swelling. Joint effusion. No displaced fracture appreciated. Additional imaging with CT scan should be considered for further evaluation if there is clinical concern for fracture or other underlying pathology.
== END 2023-12-02 08:45 | disposition home or self-care (01) ==
LOC: HO.HOSX 08:44
PROVIDERS: Visit Provider Physician Assistant
DX: Z13.89 Encounter for screening for other disorder (principal)

== ENCOUNTER 2024-01-13 09:11 | Outpatient (AMB) | payer OTHER, SELFPAY ==
--- NOTE | 2024-01-12 09:39 | MHC.OFFVIS ---
Intake Intake Visit Reasons: OV-Lt ankle injury, DOI 11/09/23 Intake Note: Anastasia is a 43 year old female who presents today for a follow up of her left ankle pain, DOI 11/09/23. Patient reports - . Allergies oxycodone Allergy (Intermediate, Verified 11/25/23 11:08) Rash Penicillins Allergy (Intermediate, Verified 11/25/23 11:08) Rash PFSH Medical History (Updated 11/25/23 @ 11:48 by Mckayla Cheema) Chronic back pain Scoliosis No known health problems Surgical History (Updated 05/11/21 @ 15:32 by Beryl Ruggiero DO) H/O tubal ligation Social History (Updated 11/25/23 @ 11:12 by Ezequiel Arriaga) Alcohol intake: never Patient Tobacco Use Status: Tobacco use Unknown Current occupational status: unemployed Coding
--- NOTE | 2024-01-13 09:23 | A.OFFVIS_ITS ---
Intake Intake Visit Reasons: OV-Lt ankle injury, DOI 11/09/23 Intake Note: Anastasia is a 43 year old female who presents today for a follow up of her left ankle pain, DOI 11/09/23. Patient has a PT appointment on 01/30/24. Patient reports she is doing well. She states when she applies full weight on her left ankle she tends to feel pain in her ankle. Patient informed me she is still having off and on numbness and tingling. Allergies acetaminophen [From Percocet] Allergy (Intermediate, Verified 01/13/24 09:26) Itching oxycodone [From Percocet] Allergy (Intermediate, Verified 01/13/24 09:26) Itching Penicillins Allergy (Intermediate, Verified 01/13/24 09:25) Rash HPI OV-Lt ankle injury, DOI 11/09/23 HPI Details 43-year-old female who presents in the o ffice today for a follow up of a left ankle sprain, which occurred on 11/09/2023 status post a fall while she was taking out her trash where she tripped over a step on the stairs. I last saw the patient in the office on 11/25/2023. At that time she was placed in a tall walking boot and encouraged to weight bear as tolerated. An order for PT was made with a goal of weaning out of the boot within 2 weeks. While in the office today the patient reports she is doing well. She claims when she applies full weight on the left ankle there is pain. She reports pain when walking over a mile. She also reports intermittent numbness and tingling. She reports she will be attending Core therapy on 01/30/2024. Patient presents in the office today in a regular walking shoe but reports she has been wearing the boot. [facility] Medical History (Updated 11/25/23 @ 11:48 by Mckayla Cheema) Chronic back pain Scoliosis No known health problems Surgical History (Updated 05/11/21 @ 15:32 by Beryl Ruggiero DO) H/O tubal ligation Social History (Updated 01/13/24 @ 09:27 by Ezequiel Arriaga) Alcohol intake: never Patient Tobacco Use Status: Former Tobacco user Quit Date: 2020 Current occupational status: unemployed Review of Systems Const All systems reviewed & are unremarkable except as noted in HPI and below Physical Exam Const General: cooperative, healthy appearing and no acute distress Resp Effort & Inspection: normal respiratory effort and able to speak in complete sentences Cardio Rate: regular rate Peripheral pulses: Peripheral pulses 2+ throughout GI Palpation (GI): Soft to palpation Skin Lesions: no lesions Rashes: no rashes Extrem Other: Left ankle: Normal to inspection. No ecchymosis or erythema. Mild edema along the medial and lateral malleolus. Slight tenderness to palpation medial and lateral malleolus. Negative anterior drawer. Full ROM in all planes. NVI. Assessment & Plan Assessment & Plan (1) Left ankle sprain: Code(s): S93.402A - Sprain of unspecified ligament of left ankle, initial encounter Qualifiers: Encounter type: initial encounter Involved ligament of ankle: unspecified ligament Qualified Code(s): S93.402A - Sprain of unspecified ligament of left ankle, initial encounter Plan Ms. Sim is a 43-year-old female who presents in the office today for a follow up of a left ankle sprain, which occurred on 11/09/2023 status post a fall while she was taking out her trash where she tripped over a step on the stairs. I last saw the patient in the office on 11/25/2023. At that time she was placed in a tall walking boot and encouraged to weight bear as tolerated. An order for PT was made with a goal of weaning out of the boot within 2 weeks. While in the office today the patient reports she is doing well. She claims when she applies full weight on the left ankle there is pain. She reports pain when walking over a mile. She also reports intermittent numbness and tingling. She reports she will be attending Core therapy on 01/30/2024. Patient presents in the office today in a regular walking shoe but reports she has been wearing the boot. Patient will begin to work with PT on 01/30/2024. She was instructed to remain out of the boot and in a supportive sneaker. Follow up will be PRN, or sooner if needed. Patient Instructions: Scribed by Mckayla Cheema director biomedical engineering, for Veronica Son PA-C on 01/13/2024 at 9:14 am, EST. Coding Level of Care Code Est Pt Level 3 (55012) Diagnoses Sprain of left ankle, unspecified ligament, initial encounter S93.402A Encounter type: initial encounter Involved ligament of ankle: unspecified ligament
== END 2024-01-13 09:43 | disposition home or self-care (01) ==
PROVIDERS: PCP Physician Assistant; Visit Provider Physician Assistant
DX: S93.402A Sprain of unspecified ligament of left ankle, initial encounter (principal)
CPT/HCPCS: 99213

== ENCOUNTER → 2024-01-13 09:11 | Outpatient (BNVA) | payer OTHER, SELFPAY | PROVIDERS: PCP Physician Assistant; Visit Provider Physician Assistant | DX: S93.402A Sprain of unspecified ligament of left ankle, initial encounter (principal); W01.0XXA Fall on same level from slipping, tripping and stumbling without subsequent striking against object, initial encounter; Y93.01 Activity, walking, marching and hiking; Y92.009 Unspecified place in unspecified non-institutional (private) residence as the place of occurrence of the external cause; Y99.9 Unspecified external cause status | CPT/HCPCS: 99212 ==

== ENCOUNTER 2024-10-10 02:13 | Emergency (ER) | payer OTHER, SELFPAY ==
--- NOTE | ~2024-10-10 | XR_ITS ---
CLINICAL HISTORY: fall pain 3 view left ankle Comparison: DX/[place]/SR - XR ANKLE LT MIN 3V - 11/25/23 10:56 EST Findings: At the inferior aspect of the lateral malleolus there is a tiny ossicle, unchanged from prior. No acute fracture deformity. No ankle effusion. No radiopaque foreign body. Bimalleolar soft tissue swelling of the ankle. Ankle mortise is in anatomic. IMPRESSION: 1. No acute fracture. Bimalleolar soft tissue swelling.. This document has been electronically signed by: Thomas Nice MD on 10/10/2024 03:07:31
--- OUTSIDE RECORDS SUMMARY | 2024-10-10 02:15 | XMS_ITS ---
Author Name [facility] Organization Unknown History of Medication Use Medication Directions Dispensed Refills Start Date End Date Stat ferrous sulfate 325 (65 FE) MG tablet Take 1 tablet (325 mg total) by mouth 2 (two) times a day. 03/19/2024 active topiramate (Topamax) 25 MG tablet Take 1 tablet (25 mg total) by mouth daily for 7 days, THEN 1 tablet (25 mg total) 2 (two) times a day for 7 days, THEN 2 tablets (50 mg total) 2 (two) times a day for 30 days. 03/19/2024 active Docusate Sodium (DSS) 100 MG CAPS Take 100 mg by mouth. 03/19/2024 active gabapentin (NEURONTIN) 300 MG capsule Take 300 mg by mouth 3 (three) times a day. 03/19/2024 aborted fluticasone (FLONASE) 50 MCG/ACT nasal spray APPLY ONE SPRAY NASALLY TWICE A DAY 03/19/2024 active furosemide (LASIX) 20 MG tablet Take 1 tablet (20 mg total) by mouth daily. 03/19/2024 aborted SUMAtriptan (Imitrex) 50 MG tablet Take 1 tablet (50 mg total) by mouth every 2 (two) hours as needed for migraine. 03/19/2024 active Ventolin HFA 108 (90 Base) MCG/ACT inhaler INHALE TWO PUFFS BY MOUTH EVERY 4 HOURS NEEDED FOR SHORTNESS OF BREATH, COUGH OR WHEEZING 03/19/2024 active acetaminophen (TYLENOL) 650 MG CR tablet Take 1 tablet (650 mg total) by mouth every 8 (eight) hours as needed. for pain 03/19/2024 active meloxicam (MOBIC) 15 MG tablet Take 1 tablet (15 mg total) by mouth daily as needed for pain. 03/19/2024 active FLUoxetine (PROzac) 20 MG capsule Take 20 mg by mouth daily. 03/19/2024 active ibuprofen 600 MG tablet Take 800 mg by mouth every 6 (six) hours as needed for pain. 03/19/2024 active Problems Problem Status Onset Date Problem Type Date of Resolution Source Migraine with aura and without status migrainosus, not intractable active EncounterDiagnosisAct CTTHNE MG
[2024-10-10 02:20] VITALS: BP 142/80; PULSE 117; RESP 18; TEMP 36.9; O2SAT 97; BMI 41.9
[2024-10-10 02:33] VITALS: BP 148/79; PULSE 112; RESP 16; TEMP 36.4; O2SAT 96
--- NOTE | 2024-10-10 03:48 | ED_ITS ---
HPI - Extremity Injury (Lower) General Chief Complaint: Extremity Injury, Lower Stated Complaint: left ankle pain from fall Time Seen by Provider: 10/10/24 03:48 Source: patient Mode of arrival: ambulatory Limitations: no limitations History of Present Illness ED Provider: Dr. Kurt Garcia HPI Narrative: 44-year-old female who presents emergency department for evaluation of injury to her left ankle. The patient states that 4 days prior to evaluation she twisted her ankle. She states she felt a crack in her ankle. She states she has been walking walking but the pain is got significantly worse. She states she was injured this ankle in the past. She was taking Tylenol for the pain and this gave her minimal relief. Related Data Home Medications ?Medication ?Instructions ?Recorded ?Confirmed acetaminophen 650 mg 650 mg PO TID 11/25/23 tablet,extended release albuterol sulfate 90 mcg/actuation inhalation 11/25/23 aerosol inhaler (Ventolin HFA) amitriptyline 10 mg tablet 10 mg PO BEDTIME 11/25/23 docusate sodium 100 mg capsule 100 mg PO DAILY 11/25/23 ferrous sulfate 325 mg (65 mg 325 mg PO BID 11/25/23 iron) tablet fluticasone propionate 50 1 spray intranasal DAILY 11/25/23 mcg/actuation nasal spray,suspension ibuprofen 800 mg tablet (IBU) 800 mg PO Q8H 11/25/23 omeprazole 20 mg capsule,delayed 20 mg PO DAILY 11/25/23 release sumatriptan succinate 50 mg tablet mg PO 11/25/23 topiramate 25 mg tablet mg PO 11/25/23 Allergies Allergy/AdvReac Type Severity Reaction Status Date / Time acetaminophen [From Percocet] Allergy Intermediate Itching Verified 10/10/24 02:23 oxycodone [From Percocet] Allergy Intermediate Itching Verified 10/10/24 02:23 Penicillins Allergy Intermediate Rash Verified 10/10/24 02:23 [facility] Past Medical History Medical History (Updated 10/10/24 @ 03:57 by Kurt Garcia MD) Chronic back pain Scoliosis No known health problems Surgical History (Updated 05/11/21 @ 15:32 by Beryl Ruggiero DO) H/O tubal ligation Social History Social History (Updated 01/13/24 @ 09:27 by Ezequiel Arriaga) Alcohol intake: never Patient Tobacco Use Status: Former Tobacco user Advance Directives: No Current occupational status: unemployed Physical Exam Vital Signs: Vital Signs: Last Vital Signs Temp 97.6 F 10/10/24 02:33 Pulse 112 H 10/10/24 02:33 Resp 16 10/10/24 02:33 BP 148/79 H 10/10/24 02:33 Pulse Ox 96 10/10/24 02:33 O2 Del Method Room Air 10/10/24 02:33 BMI result Body Mass Index 41.9 Vital signs revealed an elevated heart rate of 112 and an elevated blood pressure of 148/79 Exam: Left lower extremity/ ankle: Patient does have soft tissue swelling over the left lateral malleolus with significant tenderness palpation of this area, she was no tenderness palpation of the medial malleolus, foot, calf or knee. Medical Decision Making Medical Decision Making MDM Narrative: 44-year-old female who presents emergency department for evaluation of left ankle pain after a twisting injury 4 days prior, pain has been getting worse and the patient is having difficulty walking secondary to her pain. Physical examination did reveal soft tissue swelling over the medial malleolus with tenderness palpation of this area. Differential diagnosis: ?Includes but is not limited to left ankle sprain, left ankle fracture Course: My interpretation patient's laboratory evaluation was no acute fracture seen this was also the radiologist's interpretation. The patient was placed in a short ankle boot. Patient states she can not use crutches. Patient was advised to continue taking Tylenol for pain and to wear the ankle boot for 1-2 weeks. She was given printed and verbal instructions and discharged home. Admission/Observation Consideration of admission/observation: Escalation of care including admission/observation considered (No) Independent Interpretation I performed an independent interpretation of an: Plain X-Ray Interpretation: My interpretation patient's left three-view ankle x-ray is as follows: No acute fracture seen Radiology Impression Discussion of test interpretation with radiology: I have reviewed the radiologist's reading. Radiologist Impression: 3 view left ankle Comparison: DX/OK/SR - XR ANKLE LT MIN 3V - 11/25/23 10:56 EST Findings: At the inferior aspect of the lateral malleolus there is a tiny ossicle, unchanged from prior. No acute fracture deformity. No ankle effusion. No radiopaque foreign body. Bimalleolar soft tissue swelling of the ankle. Ankle mortise is in anatomic. IMPRESSION: 1. No acute fracture. Bimalleolar soft tissue swelling.. This document has been electronically signed by: Thomas Nice MD on 10/10/2024 03:07:31 Discharge Plan Discharge Clinical Impression: Left ankle sprain Qualifiers: Encounter type: initial encounter Involved ligament of ankle: unspecified ligament Qualified Code(s): S93.402A - Sprain of unspecified ligament of left ankle, initial encounter Patient Disposition: Home, Self-Care Additional Instructions: The x-ray of your left ankle did not reveal any broken bones which is reassuring. Your symptoms are consistent with an ankle sprain. Wear the ankle boot for 1-2 weeks. You should try to elevate your ankle and apply ice to the outside of the ankle for 15 minutes 4 to 6 times a day to help reduce the pain and swelling. Try to do this for the next 2-3 days. Continue taking extra-strength Tylenol 500 mg pills, 2 pills every 6 hours as needed for pain. Follow-up with your doctor in 2 days. Please return to the emergency department if your symptoms get worse or if you develop any symptoms that are concerning to you. Prescriptions: No Action ibuprofen [IBU] 800 mg tablet 800 mg PO Q8H acetaminophen 650 mg tablet extended release 650 mg PO TID topiramate 25 mg tablet PO amitriptyline 10 mg tablet 10 mg PO BEDTIME fluticasone propionate 50 mcg/actuation spray,suspension 1 spray intranasal DAILY omeprazole 20 mg capsule,delayed release(DR/EC) 20 mg PO DAILY docusate sodium 100 mg capsule 100 mg PO DAILY ferrous sulfate 325 mg (65 mg iron) tablet 325 mg PO BID albuterol sulfate [Ventolin HFA] 90 mcg/actuation HFA aerosol inhaler inhalation sumatriptan succinate 50 mg tablet PO Print Language: Korean
[2024-10-10 04:00] VITALS: BP 150/87; PULSE 100; RESP 16; TEMP 36.8; O2SAT 97
--- NOTE | 2024-10-10 04:27 | PC.NURSE ---
boot applied to left ankle, tolerated well, reviewed discharge instruction with pt, pt verbalized understanding.
[2024-10-10 04:35] VITALS: BP 150/87; PULSE 100; RESP 16; TEMP 36.8; O2SAT 96
== END 2024-10-10 04:37 | disposition home or self-care (01) ==
PROVIDERS: Emergency Provider Emergency Medicine Emergency Medical Services; PCP Internal Medicine Nephrology
DX: S93.402A Sprain of unspecified ligament of left ankle, initial encounter (principal); X50.1XXA Overexertion from prolonged static or awkward postures, initial encounter; Y93.01 Activity, walking, marching and hiking; Y92.410 Unspecified street and highway as the place of occurrence of the external cause; Y99.9 Unspecified external cause status
CPT/HCPCS: 73600; 99283; 99284

== ENCOUNTER → 2024-10-10 02:15 | Outpatient (BNV) | payer OTHER, SELFPAY | PROVIDERS: Emergency Provider Emergency Medicine Emergency Medical Services; PCP Internal Medicine Nephrology; Visit Provider Radiology Diagnostic Radiology | DX: M25.572 Pain in left ankle and joints of left foot (principal) | CPT/HCPCS: 73600 ==

== ENCOUNTER 2025-04-13 16:08 | Emergency (ER) | payer OTHER, SELFPAY ==
[2025-04-13 16:11] VITALS: BP 193/76; PULSE 101; RESP 18; TEMP 36.5; O2SAT 96; BMI 38.9
--- NOTE | 2025-04-13 16:11 | ED.GENADULT ---
HPI - General Adult General Chief complaint: Back Pain/Injury Stated complaint: lower back pain Time Seen by Provider: 04/13/25 18:08 Source: patient Limitations: no limitations History of Present Illness ED Provider: Reta Jiménez PA-C HPI narrative: 44-year-old female with a history of osteoarthritis, morbid obesity who presents with low back pain. Patient states she was about to fall, she caught herself to prevent the fall, subsequently straining her low back. Pain over left lumbar region, with radiation across low back and down right lower extremity. Associated paresthesia at times. Denies weakness of lower extremity, urinary retention or bowel incontinence. Related Data Home Medications ?Medication ?Instructions ?Recorded ?Confirmed acetaminophen 650 mg 650 mg PO TID 11/25/23 tablet,extended release albuterol sulfate 90 mcg/actuation inhalation 11/25/23 aerosol inhaler (Ventolin HFA) amitriptyline 10 mg tablet 10 mg PO BEDTIME 11/25/23 docusate sodium 100 mg capsule 100 mg PO DAILY 11/25/23 ferrous sulfate 325 mg (65 mg 325 mg PO BID 11/25/23 iron) tablet fluticasone propionate 50 1 spray intranasal DAILY 11/25/23 mcg/actuation nasal spray,suspension ibuprofen 800 mg tablet (IBU) 800 mg PO Q8H 11/25/23 omeprazole 20 mg capsule,delayed 20 mg PO DAILY 11/25/23 release sumatriptan succinate 50 mg tablet mg PO 11/25/23 topiramate 25 mg tablet mg PO 11/25/23 Previous Rx's ?Medication ?Instructions ?Recorded ketorolac 10 mg tablet 10 mg PO Q6H PRN pain #20 tabs 04/13/25 methocarbamol 750 mg tablet 1,500 mg (2 x 750 mg) PO Q8H PRN 04/13/25 pain, moderate #20 tabs Allergies Allergy/AdvReac Type Severity Reaction Status Date / Time oxycodone (From Percocet) Allergy Intermediate Itching Verified 04/13/25 16:13 Penicillins Allergy Intermediate Rash Verified 04/13/25 16:13 Review of Systems Review of Systems: Yes all other systems are reviewed and are negative Constitutional: Constitutional: Denies fatigue and Denies fever(s) Cardiovascular: Cardiovascular: Denies chest pain Gastrointestinal: Gastrointestinal: Denies abdominal pain Musculoskeletal: Musculoskeletal: Reports back pain, Denies muscle weakness, Denies numbness, Reports radiating pain into limb and Reports tingling Neurologic: Denies numbness and Reports tingling Endocrine: Endocrine: Denies fatigue PMFSH Past Medical History Attestation statement: The following information was validated with the patient. Medical History (Updated 04/13/25 @ 18:54 by SHERIE Souza) Chronic back pain Scoliosis No known health problems Surgical History (Updated 05/11/21 @ 15:32 by Beryl Ruggiero DO) H/O tubal ligation Social History Social History (Updated 01/13/24 @ 09:27 by Ezequiel Arriaga) Alcohol intake: never Patient Tobacco Use Status: Former Tobacco user Advance Directives: No Advance Directives Information Provided: Yes Current occupational status: unemployed Physical Exam ED Vital Signs: Vital Signs - 24 hr 04/13/25 16:11 Temperature 97.7 F Pulse Rate 101 H Respiratory Rate 18 Blood Pressure 193/76 H Pulse Oximetry 96 Oxygen Delivery Method Room Air BMI result Body Mass Index 38.9 Const Other: Alert Orientation/consciousness: patient oriented x3 Resp Effort & Inspection: normal respiratory effort Cardio Other: Normal peripheral perfusion Back/Spine/Pelvis Other: No midline tenderness Skin Other: Warm dry no rash Neuro General: patient oriented x3, gait normal, no focal motor deficits and CN's II-XI intact bilaterally Psych Other: Cooperative Course Course Course Narrative: RME performed by Deanne Harvey PA-C. Patient is a 44 year old assigned female at presenting to the emergency department with lower back pain. Patient states that she caught herself when slipping to get into her car and tweaked her back. Detailed physical exam and review of systems are deferred to the machine heddle cleaner. Patient placed back in the waiting room pending room availability. Medical Decision Making Medical Decision Making MDM Narrative: 44-year-old female with a history of osteoarthritis, morbid obesity who presents with low back pain. Patient states she was about to fall, she caught herself to prevent the fall, subsequently straining her low back. Pain over left lumbar region, with radiation across low back and down right lower extremity. Associated paresthesia at times. Denies weakness of lower extremity, urinary retention or bowel incontinence. Problem: No osteoarthritis History: Per patient I have considered the following differential diagnoses: Lumbar strain, lumbar radiculopathy, compression fracture, cauda equina Plan: Patient here with lumbar radiculopathy without red flag signs symptoms concerning for cord compression. She has no midline tenderness no deformity noted, x-rays not indicated. We will treat for sciatica symptoms. Discharge Plan Discharge Clinical Impression: Lumbar radiculopathy Patient Disposition: Home, Self-Care Instructions: Lumbar Radiculopathy (ED) Additional Instructions: You are being treated for sciatica or lumbar radiculopathy. See home care instructions. Use the methocarbamol as needed for pain, this will cause drowsiness, do not drive or operate machinery while taking the medication. Use the Toradol as directed, this is an anti-inflammatory, take it with food. Follow up with your primary care provider as needed. Prescriptions: New ketorolac 10 mg tablet 10 mg PO Q6H PRN (Reason: pain) Qty: 20 0RF Rx Instructions: maximum total duration of 5 days from all oral, intranasal, or parenteral formulations. The patient received an intramuscular dose of Toradol here in the emergency room methocarbamol 750 mg tablet 1,500 mg PO Q8H PRN (Reason: pain, moderate) Qty: 20 0RF No Action ibuprofen [IBU] 800 mg tablet 800 mg PO Q8H acetaminophen 650 mg tablet extended release 650 mg PO TID topiramate 25 mg tablet PO amitriptyline 10 mg tablet 10 mg PO BEDTIME fluticasone propionate 50 mcg/actuation spray,suspension 1 spray intranasal DAILY omeprazole 20 mg capsule,delayed release(DR/EC) 20 mg PO DAILY docusate sodium 100 mg capsule 100 mg PO DAILY ferrous sulfate 325 mg (65 mg iron) tablet 325 mg PO BID albuterol sulfate [Ventolin HFA] 90 mcg/actuation HFA aerosol inhaler inhalation sumatriptan succinate 50 mg tablet PO Print Language: Maltese
--- OUTSIDE RECORDS SUMMARY | 2025-04-13 18:23 | XMS_ITS | Clinical Summary ---
Author Organization [facility] Address [address] [place] [address] Care Team Providers Care Chief Sales Officer Name Role Phone Smith Dixon MD Primary Care Pr ovider Allergies Active Allergy Reactions Criticality Noted Date Comments Oxycodone-Acetaminophen Itching Medium 08/24/2021 Medications Medication Sig Dispensed Refills Start Date End Date Status acetaminophen (TYLENOL) 650 MG CR tablet Take 1 tablet (650 mg total) by mouth every 8 (eight) hours as needed. for pain 0 09/06/2023 Active Ventolin HFA 108 (90 Base) MCG/ACT inhaler INHALE TWO PUFFS BY MOUTH EVERY 4 HOURS NEEDED FOR SHORTNESS OF BREATH, COUGH OR WHEEZING 0 09/23/2023 Active ferrous sulfate 325 (65 FE) MG tablet Take 1 tablet (325 mg total) by mouth 2 (two) times a day. 0 05/10/2023 Active Docusate Sodium (DSS) 100 MG CAPS Take 100 mg by mouth. 0 05/10/2023 Active fluticasone (FLONASE) 50 MCG/ACT nasal spray APPLY ONE SPRAY NASALLY TWICE A DAY 0 09/23/2023 Active SUMAtriptan (Imitrex) 50 MG tablet Take 1 tablet (50 mg total) by mouth every 2 (two) hours as needed for migraine. 10 tablet 0 11/02/2023 Active ergocalciferol (VITAMIN D2) capsule 27212 units Take 1 capsule (50,000 Units total) by mouth once a week. 4 capsule 3 11/03/2023 Active topiramate (Topamax) 50 MG tablet Take 1 tablet (50 mg total) by mouth 2 (two) times a day. 60 tablet 3 12/12/2023 Active Family History Medical History Relation Name Comments Diabetes Father Asthma Mother Relation Name Status Comments Father Alive Mother Alive Social History Tobacco Use Types Packs/Day Years Used Date Smoking Tobacco: Every Day Cigarettes 0.3 15 Smokeless Tobacco: Never Tobacco Cessation:Ready to Q uit: Not Asked; Counseling Given: Not Answered Alcohol Use Standard Drinks/Week Comments Not Currently 0 (1 standard drink = 0.6 oz pur e alcohol) Sex and Gender Information Value Date Recorded Sex Assigned at Female 08/30/2023 11:44 AM EST Gender Identity Not on file Sexual Orientation Not on file Job Start Date Occupation Industry Not on file Not on file Not on file Last Filed Vital Signs Vital Sign Reading Time Taken Comments Blood Pressure 111/75 12/12/2023 11:32 AM EST Pulse 74 12/12/2023 11:32 AM EST Temperature 36.6 C (97.9 F) 12/12/2023 11:32 AM EST Respiratory Rate - - Oxygen Saturation 98% 12/12/2023 11:32 AM EST Inhaled Oxygen Concentration - - Weight 88.9 kg (196 lb) 12/12/2023 11:32 AM EST Height 154.9 cm (5' 1 ) 12/12/2023 11:32 AM EST Body Mass Index 37.03 12/12/2023 11:32 AM EST Plan of Treatment Health Maintenance Due Date Last Done Comments Hepatitis B Vaccines (1 of 3 - 3-dose series) 1981 Hepatitis C Screening 1981 Depression Screening 1993 BMI Counseling 1999 Preventative Health Evaluation 1999 Tobacco Cessation Counseling 1999 Cervical Cancer Screening (Pap Smear) 2002 Pneumococcal Vaccine (2 of 2 - PCV) 04/06/2014 04/06/2013 COVID-19 Vaccine ( season) 2024 01/24/2021, 01/02/2021 Influenza Vaccine (Season Ended) 2025 07/11/2023, 07/22/2021, 11/15/2018, Additional history exists DTap / Tdap / Td (4 - Td or Tdap) 11/09/2033 11/09/2023, 02/14/2019, 04/06/2013 RSV Ped < 20 months Aged Out No longe r eligible based on patient's age to complete this topic Care Teams Chief Sales Officer Relationship Specialty Start Date End Date Smith Dixon MD [address] [place] [address] PCP - General 11/02/23
[2025-04-13 19:17] VITALS: BP 193/76; PULSE 101; RESP 18; TEMP 36.5; O2SAT 96
== END 2025-04-13 19:18 | disposition home or self-care (01) ==
PROVIDERS: Emergency Provider Internal Medicine; PCP Internal Medicine Nephrology
DX: M54.16 Radiculopathy, lumbar region (principal); M54.50 Low back pain, unspecified; Z79.899 Other long term (current) drug therapy
CPT/HCPCS: 96372; 99283; 99284; J1885

== ENCOUNTER 2025-05-30 13:24 | Emergency (ER) | payer OTHER, SELFPAY ==
--- NOTE | ~2025-05-30 | XR_ITS ---
EXAMINATION: XR FINGER, RIGHT CLINICAL INFORMATION: ? FB distal tip index finger COMPARISON: None available. TECHNIQUE: AP right hand and two-view second digit right hand. FINDINGS: No radiopaque foreign body is identified. No fracture line is seen. There are no degenerative changes. XR/XR finger RT min 2V IMPRESSION: Unremarkable right hand. Electronically signed by: Payam Lira MD 05/30/2025 01:57 PM EDT
[2025-05-30 13:34] VITALS: BP 144/86; PULSE 103; RESP 16; TEMP 36.4; O2SAT 98; BMI 36.6
--- NOTE | 2025-05-30 13:37 | ED.GENADULT ---
HPI - General Adult General Chief complaint: Skin/Abscess/Foreign Body Stated complaint: Object stuck in finger Time Seen by Provider: 05/30/25 13:59 Source: patient, RN notes reviewed and old records reviewed Mode of arrival: ambulatory Limitations: no limitations History of Present Illness ED Provider: Kristopher HPI narrative: Patient is a 44-year-old right hand dominant female presenting to the emergency department with complaint of redness, pain and swelling to distal tip of right index finger for the past few days. Denies any known injury but questioning splinter/foreign body. Reports area is very tender/painful. Denies discharge/drainage or fevers. MD complaint: finger pain and swelling Onset (ago): day(s) Related Data Home Medications ?Medication ?Instructions ?Recorded ?Confirmed acetaminophen 650 mg 650 mg PO TID 11/25/23 tablet,extended release albuterol sulfate 90 mcg/actuation inhalation 11/25/23 aerosol inhaler (Ventolin HFA) amitriptyline 10 mg tablet 10 mg PO BEDTIME 11/25/23 docusate sodium 100 mg capsule 100 mg PO DAILY 11/25/23 ferrous sulfate 325 mg (65 mg 325 mg PO BID 11/25/23 iron) tablet fluticasone propionate 50 1 spray intranasal DAILY 11/25/23 mcg/actuation nasal spray,suspension ibuprofen 800 mg tablet (IBU) 800 mg PO Q8H 11/25/23 omeprazole 20 mg capsule,delayed 20 mg PO DAILY 11/25/23 release sumatriptan succinate 50 mg tablet mg PO 11/25/23 topiramate 25 mg tablet mg PO 11/25/23 Previous Rx's ?Medication ?Instructions ?Recorded ketorolac 10 mg tablet 10 mg PO Q6H PRN pain #20 tabs 04/13/25 methocarbamol 750 mg tablet 1,500 mg (2 x 750 mg) PO Q8H PRN 04/13/25 pain, moderate #20 tabs doxycycline hyclate 100 mg capsule 100 mg PO BID #14 caps 05/30/25 Allergies Allergy/AdvReac Type Severity Reaction Status Date / Time oxycodone (From Percocet) Allergy Intermediate Itching Verified 05/30/25 13:38 Penicillins Allergy Intermediate Rash Verified 05/30/25 13:38 Review of Systems Review of Systems: as per hpi Yes all other systems are reviewed and are negative Constitutional: Constitutional: Reports as per HPI [facility] Past Medical History Medical History (Updated 05/30/25 @ 14:04 by Richa Summers NP) Chronic back pain Scoliosis No known health problems Surgical History (Updated 05/11/21 @ 15:32 by Beryl Ruggiero DO) H/O tubal ligation Social History Social History (Updated 01/13/24 @ 09:27 by Ezequiel Arriaga) Alcohol intake: never Patient Tobacco Use Status: Former Tobacco user Current occupational status: unemployed Physical Exam ED Vital Signs: Vital Signs - 24 hr 05/30/25 13:34 Temperature 97.6 F Pulse Rate 103 H Respiratory Rate 16 Blood Pressure 144/86 H Pulse Oximetry 98 Oxygen Delivery Method Room Air BMI result Body Mass Index 36.6 Vital signs have been reviewed and appear to be correct. Blood pressure normal. Heart rate normal. Respiratory rate normal. Temperature normal. Oxygen saturation normal. Const General: cooperative, healthy appearing and no acute distress Orientation/consciousness: oriented to person, oriented to place, oriented to time and patient oriented x3 Limitations: no limitations HENMT Head: Yes normocephalic and Yes atraumatic Ears: external ears normal General nose exam: Normal external nose present Face and sinus: Yes face symmetric Mouth: oropharynx normal and moist mucous membranes Throat: Yes uvula midline Eyes Pupils: Equal, round and reactive pupils present Neck Neck: Yes normal visual inspection and Yes supple Resp Effort & Inspection: normal respiratory effort and able to speak in complete sentences Auscultation: clear to auscultation bilaterally Cardio Rate: regular rate Rhythm: regular rhythm Heart sounds: S1 normal heart sound present and S2 normal heart sound present GI Palpation (GI): Soft to palpation and nontender Auscultation: normoactive bowel sounds General: Yes no CVA tenderness Back/Spine/Pelvis Back: no CVA tenderness Skin General skin exam: elasticity normal and turgor normal Neuro General: oriented to person, oriented to place, oriented to time, patient oriented x3, moves all extremities, no focal motor deficits and CN's II-XI intact bilaterally Cranial nerves: Yes Equal, round and reactive pupils present Cognition (Neuro): normal cognition Extrem Other: General: Yes full ROM, Yes no pedal edema and Yes no calf tenderness Right upper extremity: Extremity exam: right hand Details: normal capillary refill, neuromotor exam normal and other (erythema and swelling to nail fold on radial side towards midline with two punctate areas of darker erythema, no fluctuance, see photos) Psych Mental Status: mental status grossly normal Affect: normal affect Thought process: Normal thought process present Course Course Course Narrative: This is a rapid medical exam performed by Sami Summers NP: Additional HPI, ROS, PE not included below will be deferred to primary provider. Patient is a 44y/o right hand dominant female presenting with pain and discoloration to distal tip of R index finger, questioning FB. Does not remember any injury. Plan: xray Medical Decision Making Medical Decision Making [facility] Narrative: Patient is a 44-year-old right hand dominant female presenting to the emergency department with complaint of redness, pain and swelling to distal tip of right index finger for the past few days. On exam patient is awake, A+Ox3, VS WNL, afebrile, normal neurological exam without focal deficits, physical exam findings as above. Given reported symptoms and physical exam findings, initial differential includes but is not limited to paronychia, foreign body. Do not suspect felon. No fluctuant area for I&D. X-ray notable for no evidence of foreign body. My interpretation is in agreement with the radiologist's interpretation. Results discussed with patient and all questions answered. Will treat with doxycycline as patient has PCN allergy. Advised soaking in warm salt water. Return precautions discussed. Patient verbalized understanding of and agreement with plan. Differential Diagnosis Differential Diagnoses: The differential diagnosis associated with the presentation includes as per [facility] Admission/Observation Consideration of admission/observation: Escalation of care including admission/observation considered Patient would have been admitted to the hospital had their clinical presentation warranted hospital admission. Independent Interpretation I performed an independent interpretation of an: Plain X-Ray Interpretation: No evidence of foreign body on x-ray of right index finger Radiology Impression Discussion of test interpretation with radiology: I have reviewed the radiologist's reading. Radiologist Impression: XR/XR finger RT min 2V IMPRESSION: Unremarkable right hand. External Record Review External record reviewed: Inpatient record, Office record and Outpatient record Prescription Management I considered prescription management with: Antibiotic Discharge Plan Discharge Clinical Impression: Paronychia of finger of right hand Patient Disposition: Home, Self-Care Instructions: Paronychia (ED) Additional Instructions: You have been evaluated in the emergency department today for an infection of the skin around your nail, also known as a paronychia. If the area of inflammation was outlined today in the ER, please return to the ER immediately if the area of redness increases beyond the border. Please take your prescribed antibiotics as directed for the full course of the medication. We also recommend that you soak your finger in warm salt water for 10-15 minutes at a time several times daily. You can use Tylenol or ibuprofen per package instructions every 6 hours as needed for pain. If necessary, you can alternate these medications so that you can take one medication every 3 hours. For instance, at noon take ibuprofen, then at 3:00 p.m. take Tylenol, then at 6:00 p.m. take ibuprofen. Please schedule an appointment for follow-up with your primary care physician as soon as possible. Return to the emergency department if you experience recurrent vomiting, fevers greater than 100.4? F, increasing area of redness, warmth around the area, foul-smelling discharge from the area, increased tenderness around the area, or any other concerning symptoms. Prescriptions: New doxycycline hyclate 100 mg capsule 100 mg PO BID Qty: 14 0RF No Action ketorolac 10 mg tablet 10 mg PO Q6H PRN (Reason: pain) Qty: 20 0RF Rx Instructions: maximum total duration of 5 days from all oral, intranasal, or parenteral formulations. The patient received an intramuscular dose of Toradol here in the emergency room methocarbamol 750 mg tablet 1,500 mg PO Q8H PRN (Reason: pain, moderate) Qty: 20 0RF ibuprofen [IBU] 800 mg tablet 800 mg PO Q8H acetaminophen 650 mg tablet extended release 650 mg PO TID topiramate 25 mg tablet PO amitriptyline 10 mg tablet 10 mg PO BEDTIME fluticasone propionate 50 mcg/actuation spray,suspension 1 spray intranasal DAILY omeprazole 20 mg capsule,delayed release(DR/EC) 20 mg PO DAILY docusate sodium 100 mg capsule 100 mg PO DAILY ferrous sulfate 325 mg (65 mg iron) tablet 325 mg PO BID albuterol sulfate [Ventolin HFA] 90 mcg/actuation HFA aerosol inhaler inhalation sumatriptan succinate 50 mg tablet PO Print Language: Venezuelan
[2025-05-30 14:13] VITALS: BP 144/86; PULSE 103; RESP 16; TEMP 36.4; O2SAT 98
--- OUTSIDE RECORDS SUMMARY | 2025-05-30 14:20 | XMS_ITS | Clinical Summary ---
Author Organization [facility] Address [address] [place] [address] Care Team Providers Care Guest Services Associate Name Role Phone Smith Dixon MD Primary [...] 0 11/02/2023 Active ergocalciferol (VITAMIN D2) capsule 30073 units Take 1 capsule (50,000 Units total) [...] ( season) 2024 01/24/2021, 01/02/2021 Influenza Vaccine (#1) 2025 , 07/22/2021, 11/15/2018, Additional history exists DTap / Tdap / Td (4 - Td or Tdap) 11/09/2033 11/09/2023, 02/14/2019, 04/06/2013 RSV Ped < 20 months Aged Out No longe r eligible based on patient's age to complete this topic Care Teams Guest Services Associate Relationship Specialty Start Date End Date Smith Dixon MD [address] [place] [address] PCP - General 11/02/23
--- OUTSIDE RECORDS SUMMARY | 2025-05-30 14:20 | XMS_ITS | Encounter Summary ---
Author Organization [facility] Address [address] [place] [address] Care Team Providers Care Compensation Vice President Name Role Phone Smith Dixon MD Primary Care Provider + Ruslan Monterroso PA-C Unavailable [phone] Dina Walters PA-C Unavailable [phone] Airam Rivera MD Unavailable [phone] Encounter Details Date Type Department Care Team Description 04/26/2023 Pt. Non Urgent Medical Question Adult Medicine [address] [address] Miladis Palmer PA-C [address] [place] [id number] Social History Tobacco Use Types Packs/Day Years Used Date Smoking Tobacco: Every Day Cigarettes 0.3 Smokeless Tobacco: Never Comments:4 cig/day, tried pa tches in past & didn't work Alcohol Use Standard Drinks/Week Comments No 0 (1 standard drink = 0.6 oz pur e alcohol) Sex Assigned at Date Recorded Female 05/02/2023 8:00 PM E DT Job Start Date Occupation Industry Not on file Not on file Not on file COVID-19 Exposure Response Date Recorded In the last 10 days, have yo u been in contact with someone who was confirmed or suspected to have Coronavirus/COVID-19? No / Unsure 04/22/2023 10:01 AM EDT documented as of this encounter Plan of Treatment Not on file documented as of this encounter Visit Diagnoses Not on filedocumented in this encounter Additional Health Concerns Infection Onset Date Last Indicated Resolved Time COVID-19 09/23/2023 09/26/2023 documented as of this encounter Care Teams Compensation Vice President Relationship Specialty Start Date End Date Smith Dixon MD [address] [place] [address] PCP - General Internal Medicine 04/22/23 Ruslan Monterroso PA-C [address] [address] Specialist Neurosurgery 07/05/24 Dina Walters PA-C [address] [address] Specialist Neurosurgery 07/05/24 Airam Rivera MD [address] [address] Surgeon Neurosurgery 07/05/24 documented as of this encounter
--- OUTSIDE RECORDS SUMMARY | 2025-05-30 14:20 | XMS_ITS | Clinical Summary ---
Author Organization [facility] [address] [place] [address] [place] [phone] Phone Care Team Providers Care Disability Case Manager Name Role Phone Smith Dixon MD Primary Care Pr ovider Allergies Active Allergy Reactions Criticality Noted Date Comments Oxycodone-Acetaminophen Itching Medium 08/24/2021 Medications acetaminophen (TYLENOL 8 HOUR) 650 mg 8 hr tablet Take 1 tablet (650 mg total) by mouth every 8 (eight) hours as needed. for pain 3 Active fluticasone propionate (FLONASE) 50 mcg/actuation nasal spray INSTILL 1 SPRAY BY NASAL ROUTE DAILY 16 g 2 4 Active predniSONE (DELTASONE) 20 mg tablet Take 3 tabs for 3 days, take 2 tabs for 3 days, take 1 tab for 3 days 18 tablet 5 Active cyclobenzaprine (FLEXERIL) 10 mg tablet Take 0.5-1 tablets (5-10 mg total) by mouth 2 (two) times a day if needed for muscle spasms. Medication may cause drowisness. Do not operate machinery/driv e while taking. 28 tablet 5 Active gabapentin (NEURONTIN) 300 mg capsule Take 1 capsule (300 mg total) by mouth at bedtime. 90 each 5 07/23/20 25 Active omeprazole (PriLOSEC) [address] capsuleIndicatio ns:Gastroesophag eal reflux disease without esophagitis Take 1 capsule (20 mg total) by mouth 1 (one) time each day. Do not crush or chew. 90 each 1 5 10/21/19 26 Active tirzepatide, weight loss, (Zepbound) 2.5 mg/0.5 mL solutionIndicati ons:Obesity (BMI 30-39.9) Inject 2.5 mg under the skin every 7 (seven) days. 2 mL 5 05/24/20 25 Active Problems Problem Noted Date Diagnosed Date Morbid obesity with body mas s index (BMI) of 40.0 to 44.9 in adult ([facility] V24, [facility] V28) 01/13/2025 Hypertriglyceridemia 09/18/2024 Assessment & Plan (04/24/2025 10:14 PM EDT): Lifestyle Counseling provided Orders: Lipid panel with reflex to direct LDL; Future Prediabetes 09/18/2024 Assessment & Plan (04/24/2025 10:14 PM EDT): Last A1c was 5.6. lifestyle counseling provided Orders: Hemoglobin A1c; Future GERD (gastroesophageal reflux disease) 4 Assessment & Plan (04/24/2025 10:14 PM EDT): Stable. Continue omeprazole Orders: omeprazole (PriLOSEC) [address] capsule; Take 1 capsule (20 mg total) by mouth 1 (one) time each day. Do not crush or chew. Iron deficiency anemia 09/18/2024 Assessment & Plan (04/24/2025 10:14 PM EDT): Resolved on testing done in Aug. Will update labs Orders: Iron and TIBC; Future Ferritin; Future CBC and differential; Future Comprehensive metabolic panel; Future Chronic rhinitis 09/18/2024 Migraines 09/18/2024 Drug-induced constipation 05/10/2023 Assessment & Plan (04/24/2025 10:14 PM EDT): Resolved. No longer on Iron supplements Spondylosis of lumbar spine 06/02/2021 Overview (01/13/2025): Last Assessment & Plan: Patient describes low back pain, worse on the left that has progressively been worsening over the last 3 years. At times she will get pain radiating down the posterior left thigh, rarely gets any symptoms below the knee. There are times the pain will had a 9/10. There are some days where she cannot get out of bed the back hurts too much, in general mornings are worse, she gets some relief with moving around and walking. However if she stands up straight for a length of time, or when laying down she notes pain in her back. She denies symptoms in the right leg, bowel bladder incontinence. She has tried NSAIDs, prednisone without relief. 2 years ago she went to physical therapy for 3 months, did not see improvement in her pain. Prior to PT she tried congregational care pastor but did not help. She had L5-S1 GENO without improvement, then had bilateral L4-5, L5-S1 facet injections, Dr. Gould's note states she had 60% improvement in her pain, although patient states it did not help her, then in February had right L3 TFE, did not see improvement. Patient had lumbar spine MRI 06/27/2024 at [facility] that overall showed minimal degenerative changes, mild degenerative disc changes and DJD at L3-4, moderate-severe DJD with bilateral joint effusions L4-5 without significant stenosis. I reviewed her MRI images on the computer with her in detail. I also reviewed her MRI with Dr. Rivera while patient was in the office. Ms. Murillo has low back pain, is tender over L4-5 facets to palpation, more so on the left than the right, no pain palpating midline lumbar spine or SI joints, + tenderness over left lateral hip. Dr. Rivera is not recommending surgery (which would entail fusion) at this time, her disc appears healthy at L4-5, there is no stenosis, only finding is DJD. We talked about going back to try facet injections again, or aquatic therapy, acupuncture. Patient would like to try acupuncture, name provided. We reviewed some core strengthening exercises she can do at home, which may help her back pain. I asked her to call with an update after trying acupuncture. All questions answered. Assessment & Plan (04/24/2025 10:14 PM EDT): Continue flexeril 10mg nightly prn . She will complete prednisone taper and tramadol as prescribed. She will call family physiatry to schedule an appt Bipolar affective disorder (CMS/HCC V24, [facility] V28) 01/03/2008 Assessment & Plan (04/24/2025 10:14 PM EDT): Provided with behavioral health resources. Advised she can walk into [facility] In [place] to establish care. Also provided with the contact information to [facility] [employer] Encounters Date Type Department Care Team Description 05/06/2025 Telephone Adult [address] [phone] Smith Dixon MD 04/25/2025 1:18 PM EDT - 04/25/2025 11:59 PM EDT Hospital Encounter Radiology Department - [address] [phone] Breast mass Discharge Disposition: Home or Self Care 04/24/2025 11:00 AM EDT Office Visit [address] [phone] Smith Dixon MD Spondylosis of lumbar spine (Primary Dx); Bipolar affective disorder, currently depressed, moderate (CMS/HCC V24, CMS/HCC V28); Drug-induced constipation; Gastroesophageal reflux disease without esophagitis; Iron deficiency anemia, unspecified iron deficiency anemia type; Prediabetes; Hypertriglyceridemi a; Need for hepatitis C screening test; Obesity (BMI 30-39.9); Encounter for screening mammogram for malignant neoplasm of breast 04/18/2025 9:55 AM EDT - 04/18/2025 11:59 PM EDT Hospital Encounter XRAY [address] [phone] Spondylosis of lumbar spine; Acute bilateral low back pain with left-sided sciatica Discharge Disposition: Home or Self Care 04/18/2025 9:30 AM EDT [facility] Visit [facility] [place] [address] [place], [place] [phone] Miladis Mays PA Acute bilateral low back pain with left-sided sciatica (Primary Dx); Spondylosis of lumbar spine 03/05/2025 Telephone Adult Medicine [facility] [address] [place], [place] [phone] Smith Dixon MD Earache from Last 3 Months Immunizations Name Administration Dates Next Due DTaP (Infanrix) 6wks to less than 7yo 04/06/2013 Influenza Quadravalent, MDCK , 0.5ml, preservative free (Flucelvax) 6mo and older 07/11/2023,11/15/2018 Influenza Whole 07/07/2009 Influenza trivalent, MDCK, 0 .5mL, preservative free (Flucelvax) 6mo and older 09/18/2024 Influenza trivalent, with pr eservative (Fluzone; Afluria) 6mo and older 09/24/2010 Influenza, Unspecified 07/22/2021 TraNet'te SARS-CoV-2 COVID-19, mRNA, LNP-S, preservative free 01/24/2021,01/02/2021 Pneumococcal polysaccharide 23 valent (Pneumovax 23) 2yo and older 04/06/2013 Tdap Tetanus diptheria acell ular pertussis (Boostrix; Adacel) 7yo and older 11/09/2023,02/14/2019,09/24/2010 Surgical History Surgery Date Site/Laterality Comments TUBAL LIGATION PROCEDURE:TUBAL LIGATION CHOLECYSTECTOMY PROCEDURE:CHOLECYSTECTOMY CHOLECYSTECTOMY PROCEDURE: HISTORICAL CHOLECYSTECTOMY SECTION PROCEDURE: HISTORICAL DELIVERY; COMMENT: x 1 TUBAL LIGATION 2012 PROCEDURE: HISTORICAL TUBAL LIGATION SECTION, LOW TRANSVERSE 10/06/99 Medical History Medical History Date Comments Arthritis DX:Arthritis Bipolar 1 disorder (CMS/HCC V24, [facility] V28) DX:Bipolar 1 disorder (HCC) Depression DX:Depression Bipolar affective disorder ( CMS/HCC V24, CMS/HCC V28) 01/03/2008 DX:Bipolar affective disorde r (HCC); COMMENT: Counselor: [facility] [place] Panic attack 02/14/2008 DX:Panic attack Migraine with aura 04/29/2008 DX:Migraine w ith aura Knee joint pain 04/29/2008 DX:Knee joint pa in Gastroesophageal reflux disease 05/10/2023 DX:Gastroesophageal reflux disease Anemia DX:Anemia Anxiety DX:Anxiety Arthritis DX:Arthritis Leg pain DX:Leg pain Family History Medical History Relation Name Comments Diabetes Father Colon Other: a fib Father Colon Diabetes Maternal Grandmother Medhat Other: heart disease Maternal Grandmother Medhat Arthritis Mother Donnell Asthma Mother Donnell Hypertension Mother Donnell Alzheimer's disease Paternal Grandmother Colon Colon cancer Paternal Grandmother Colon Diabetes Paternal Grandmother Colon No Known Problems Son Blindness Neg Hx Breast cancer Neg Hx Cataracts Neg Hx Glaucoma Neg Hx Macular degeneration Neg Hx Ovarian cancer Neg Hx Strabismus Neg Hx Relation Name Status Comments Daughter 1 Alive Daughter 2 Alive Father Colon Alive dm, Maternal Grandmother Medhat Alive Mother Donnell Alive asthma, Paternal Grandfather Paternal Grandmother Colon Son Alive Social History Tobacco Use Types Packs/Day Years Used Date Smoking Tobacco: Former Cigarettes 0.3 15 Q uit: 10/10/2020 Smokeless Tobacco: Never Tobacco Cessation:Counseling Given: Not Answered Alcohol Use Standard Drinks/Week Comments No 0 (1 standard drink = 0.6 oz pur e alcohol) Housing Instability Answer Date Recorde d Are you worried that in the next 2 months you may not have stable housing? No 09/12/2024 Food Access & Nutrition Answer Date Rec orded Do you have access to a vari ety of food including fruits and vegetables? Yes 09/12/2024 Access to Healthcare Answer Date Record ed Within the last 3 months, ho dmitriy many times did you visit the emergency department for your medical care? 0 09/12/2024 Health Literacy Answer Date Recorded How often do you need to hav e someone help you when you read instructions, pamphlets, or other written material from your doctor or pharmacy? Never 09/12/2024 Caregiver: How often do you need to have someone help you when you read instructions, pamphlets, or other written material from your doctor or pharmacy? Not on file 09/12/2024 Financial Risk Answer Date Recorded How hard is it for you to pa y for the very basics like food, housing, medical care, and air conditioning / heating? Not very hard 09/12/2024 Transportation Answer Date Recorded Has the lack of transportati on kept you from meetings, work, or from getting things needed for daily living? No Has the lack of transportati on kept you from medical appointments or from getting medications? No 09/12/2024 Social Isolation Answer Date Recorded How often do you feel lonely or isolated from those around you? Sometimes 09/12/2024 Food Risk Answer Date Recorded Within the past 12 months we worried whether our food would run out before we got money to buy more. Never true 09/12/2024 Within the past 12 months th e food we bought just didn't last and we didn't have money to get more. Never true 09/12/2024 Dependent Care Answer Date Recorded Do you need help finding or paying for care for your loved ones. For example, child care specialist or elderly care for an older adult? No 09/12/2024 Education Answer Date Recorded Do you think completing more education or training, like finishing a GED, going to college, or learning a trade, would be helpful for you? Yes 09/12/2024 Employment and Income Answer Date Recor ded During the last four weeks, have you been actively looking for work? No 09/12/2024 Living Situation Answer Date Recorded What is your living situation? 1 11/13/2023 Comments No Sex and Gender Information Value Date Recorded Sex Assigned at Female 08/15/2024 12:46 PM EST Legal Sex Female 1:55 PM EST Gender Identity Female 08/15/2024 12:46 PM EST Sexual Orientation Straight 08/15/2024 12 :46 PM EST Obstetrics History Last Filed Vital Signs Vital Sign Reading Time Taken Comments Blood Pressure 123/76 04/24/2025 10:58 AM EDT Pulse 92 04/24/2025 10:58 AM EDT Temperature 35.9 C (96.7 F) 04/24/2025 10:58 AM EDT Respiratory Rate 18 04/24/2025 10:58 AM EDT Oxygen Saturation 97% 04/24/2025 10:58 AM EDT Inhaled Oxygen Concentration - - Weight 91.4 kg (201 lb 9.6 oz) 04/24/2025 10:58 AM EDT Height 152.4 cm (5') 04/24/2025 10:58 AM EDT Body Mass Index 39.37 04/24/2025 10:58 AM EDT Plan of Treatment Upcoming Encounters Date Type Department Care Team (Late st Contact Info) Description 07/10/2025 10:00 AM EDT Ancillary Procedure [facility] [address] [place] [phone] 08/13/2025 3:30 PM EST Appointment Radiology Department - [address] [phone] 10/28/2025 1:45 PM EST Appointment Radiology Department - [address] [phone] Health Maintenance Due Date Last Done Comments Hepatitis B Vaccines (1 of 3 - 19+ 3-dose series) 2000 Cervical Cancer Screening: Pap Smear 04/17/2022 04/17/2019 HIV Screening 09/08/2022 COVID-19 Vaccine ( season) 2024 01/24/2021, 01/02/2021 Influenza Vaccine (#1) 2025 , 07/11/2023, 07/22/2021, Additional history exists Social Influencers of Health Screening 09/12/2025 09/12/2024 Breast Cancer Screening 08/02/2026 08/02/20 24, 08/02/2024, 08/01/2024, Additional history exists Cholesterol Screening (Lipid Panel) 04/25/2030 04/25/2025, 08/27/2024 DTaP,Tdap,and Td Vaccines (5 - Td or Tdap) 11/09/2033 11/09/2023, 02/14/2019, 04/06/2013, Additional history exists Pneumococcal Vaccine: Pediatrics (0 to 5 Years) and At-Risk Patients (6 to 49 Years) Aged Out 04/06/2013 No longer eligible based on patient's age to complete this topic Depression Screening Completed 04/23/2025 Hepatitis C Screening Completed 04/25/2025 HIB Vaccines Aged Out No longer eligi ble based on patient's age to complete this topic HPV Vaccines Aged Out No longer eligi ble based on patient's age to complete this topic Hepatitis A Vaccines Aged Out No long er eligible based on patient's age to complete this topic IPV Vaccines Aged Out No longer eligi ble based on patient's age to complete this topic MMR Vaccines Aged Out No longer eligi ble based on patient's age to complete this topic Meningococcal ACWY Vaccine Aged Out N o longer eligible based on patient's age to complete this topic Meningococcal B Vaccine Aged Out No l onger eligible based on patient's age to complete this topic RSV Immunization Patients Under 20 months Aged Out No longer eligible based on patient's age to complete this topic Varicella Vaccines Aged Out No longer eligible based on patient's age to complete this topic Procedures Procedure Name Priority Date/Time Associated Diagnosis Comments US BREAST LIMITED RIGHT Routine 04/25/2025 1:27 PM EDT Breast mass CBC WITH AUTO DIFFERENTIAL Routine 04/25/2025 9:39 AM EDT Iron deficiency anemia, unspecified iron deficiency anemia type HEPATITIS C ANTIBODY Routine 04/25/2025 9:39 AM EDT Need for hepatitis C screening test IRON AND TIBC Routine 04/25/2025 9:39 AM EDT Iron deficiency anemia, unspecified iron deficiency anemia type FERRITIN Routine 04/25/2025 9:39 AM EDT Iron deficiency anemia, unspecified iron deficiency anemia type CBC AND DIFFERENTIAL Routine 04/25/2025 9:39 AM EDT Iron deficiency anemia, unspecified iron deficiency anemia type COMPREHENSIVE METABOLIC PANEL Routine 04/25/2025 9:39 AM EDT Iron deficiency anemia, unspecified iron deficiency anemia type THYROID STIMULATING HORMONE WITH REFLEX TO FREE T4 AND FREE T3 Routine 04/25/2025 9:39 AM EDT Obesity (BMI 30-39.9) HEMOGLOBIN A1C Routine 04/25/2025 9:39 AM EDT Prediabetes LIPID PANEL WITH REFLEX TO DIRECT LDL Routine 04/25/2025 9:39 AM EDT Hypertriglyceridemia XR LUMBAR SPINE 4+ VIEWS Routine 04/18/2025 10:05 AM EDT Spondylosis of lumbar spine Acute bilateral low back pain with left-sided sciatica DIAGNOSTIC MAMMOGRAPHY WITH CAD UNILATERAL Routine 08/02/2024 10:33 AM EDT Other abnormal and inconclusive findings on diagnostic imaging of breast PAP SMEAR Routine 04/17/2019 from Last 3 Months or Most Recently Relevant to Health Maintenance Results * US Breast Limited Right (04/25/2025 1:27 PM EDT) Anatomical Region Laterality Modality Breast Right Ultrasound 04/25/2025 1:30 PM EDT Impressions 04/25/2025 1:35 PM EDT No significant change in the probably benign cystic lesion at the 3 o'clock position of the right breast. Recommend continued ultrasound follow-up in 6 months. BI-RADS CATEGORY: 3 - PROBABLY BENIGN RECOMMENDATION: Ultrasound of the right breast is recommended in 6 months. ULTRASOUND LOCATION: [place] [facility], [address] [place] [address], [phone], -------- FINAL REPORT -------- Dictated By: Mena Huber Dictated Date: 04/25/2025 13:30 ET Assigned Physician: Mena Huber Reviewed and Electronically Signed By: Mena Huber Signed Date: 04/25/2025 13:35 ET Workstation ID: [id number] Transcribed By: Self Edit Transcribed Date: 04/25/2025 13:30 ET Narrative 04/25/2025 1:35 PM EDT EXAM: Right breast ultrasound CLINICAL: 44 years old, Female, 6 month follow-up of a probably benign cystic lesion at the 3 o'clock position of the right breast. COMPARISON: 08/02/2024 FINDINGS: No significant interval change in the cystic lesion with internal echoes at the 3 o'clock position, 2 cm from the nipple. It measures 0.4 x 0.3 x 0.3 cm. Procedure Note Mena Huber MD - 04/25/2025 EXAM: Right breast ultrasound CLINICAL: 44 years old, Female, 6 month follow-up of a probably benigncystic lesion at the 3 o'clock position of the right breast. COMPARISON: 08/02/2024 FINDINGS: No significant interval change in the cystic lesion with internal echoesat the 3 o'clock position, 2 cm from the nipple. It measures 0.4 x 0.3 x0.3 cm. IMPRESSION: No significant change in the probably benign cystic lesion at the 3o'clock position of the right breast. Recommend continued ultrasoundfollow-up in 6 months. BI-RADS CATEGORY: 3 - PROBABLY BENIGN RECOMMENDATION: Ultrasound of the right breast is recommended in 6 months. ULTRASOUND LOCATION: [place] [facility], [address] [place] [address], [phone], -------- FINAL REPORT -------- Dictated By: Mena Huber Dictated Date: 04/25/2025 13:30 ET Assigned Physician: Mena Huber Reviewed and Electronically Signed By: Mena Huber Signed Date: 04/25/2025 13:35 ET Workstation ID: [id number] Transcribed By: Self Edit Transcribed Date: 04/25/2025 13:30 ET Smith Dixon MD IMG US PROCEDURE S Final Result * Hepatitis C antibody (04/25/2025 9:39 AM EDT) Hepatitis C Antibody Negative Negative LAB CHEMISTRY METHOD 04/25/2025 5:24 PM EDT [facility] Blood Venous blood specimen / Unknown Venipuncture / Unknown 04/25/2025 9:39 AM EDT 04/25/2025 9:39 AM EDT Smith Dixon MD LAB BLOOD ORDERA BLES Final Result [facility] [address] [place] [address], [place] [phone] * Thyroid stimulating hormone with reflex to free t4 and free t3 (04/25/2025 9:39 AM EDT) [facility] TSH 1.93 0.40 - 4.00 mcIU/mL LAB CHEMISTRY METHOD 04/25/2025 4:45 PM T [facility] Blood Venous blood specimen / Unknown Venipuncture / Unknown 04/25/2025 9:39 AM EDT 04/25/2025 9:39 AM EDT Smith Dixon MD LAB BLOOD ORDERA BLES Final Result [facility] [address] [place] [address], [place] [phone] * (ABNORMAL) Lipid panel with reflex to direct LDL (04/25/2025 9:39 AM EDT) [facility] Cholesterol 183 0 - 200 mg/dL LAB CHEMISTRY METHOD 04/25/2025 3:05 PM [facility] Triglycerides 207(H) 0 - 150 mg/dL LAB CHEMISTRY METHOD 04/25/2025 3:05 PM [facility] HDL 53 >=40 mg/dL LAB CHEMISTRY METHOD 04/25/2025 3:05 PM T [facility] LDL Calculated 89 0 - 100 mg/dL LAB CHEMISTRY METHOD 04/25/2025 3:05 PM [facility] VLDL Cholesterol Nickolas 41.4 mg/dL LAB CHEMISTRY METHOD 04/25/2025 3:05 PM [facility] Non HDL Chol. (LDL+VLDL) 130 <145 mg/dL LAB CHEMISTRY METHOD 04/25/2025 3:05 PM [facility] Chol/HDL Ratio 3.5 0.0 - 4.4 LAB CHEMISTRY METHOD 04/25/2025 3:05 PM EDT [facility] Blood Venous blood specimen / Unknown Venipuncture / Unknown 04/25/2025 9:39 AM EDT 04/25/2025 9:39 AM EDT Smith Dixon MD LAB BLOOD ORDERA BLES Final Result [facility] [address] [place] [address], * (ABNORMAL) CBC auto differential (04/25/2025 9:39 AM EDT) WBC 11.4(H) 4.8 - 10.8 K/mcL LAB HEMETOLOGY METHOD 04/25/2025 12:29 PM EDT [facility] RBC 4.70 3.80 - 4.80 M/[facility] LAB HEMETOLOGY METHOD 04/25/2025 12:29 PM EDT [facility] Hemoglobin 14.6 11.5 - 16.0 g/dL LAB HEMETOLOGY METHOD 04/25/2025 12:29 PM EDT [facility] Hematocrit 42.5 35.0 - 47.0 % LAB HEMETOLOGY METHOD 04/25/2025 12:29 PM EDT [facility] MCV 90.2 79.0 - 98.0 FL LAB HEMETOLOGY METHOD 04/25/2025 12:29 PM EDT [facility] MCH 31.0 27.0 - 32.0 pcg LAB HEMETOLOGY METHOD 04/25/2025 12:29 PM EDT [facility] MCHC 34.4 32.0 - 37.0 g/dL LAB HEMETOLOGY METHOD 04/25/2025 12:29 PM [facility] RDW 13.6 11.0 - 15.0 % LAB HEMETOLOGY METHOD 04/25/2025 12:29 PM [facility] Platelets 373 130 - 400 K/mcL LAB HEMETOLOGY METHOD 04/25/2025 12:29 PM [facility] MPV 10.6 7.0 - 11.0 FL LAB HEMETOLOGY METHOD 04/25/2025 12:29 PM [facility] NRBC 0.0 <1.0 % LAB HEMETOLOGY METHOD 04/25/2025 12:29 PM [facility] NRBC Absolute 0.00 <0.10 K/mcL LAB HEMETOLOGY METHOD 04/25/2025 12:29 PM [facility] Neutrophils Relative 63.9 % LAB HEMETOLOGY METHOD 04/25/2025 12:29 PM [facility] Lymphocytes Relative 28.1 % LAB HEMETOLOGY METHOD 04/25/2025 12:29 PM [facility] Monocytes Relative 5.1 % LAB HEMETOLOGY METHOD 04/25/2025 12:29 PM [facility] Eosinophils Relative 1.8 % LAB HEMETOLOGY METHOD 04/25/2025 12:29 PM [facility] Basophils Relative 0.4 % LAB HEMETOLOGY METHOD 04/25/2025 12:29 PM [facility] Immature Granulocytes Relative 0.7 % LAB HEMETOLOGY METHOD 04/25/2025 12:29 PM [facility] Neutrophils Absolute 7.25(H) 1.50 - 7.00 K/mcL LAB HEMETOLOGY METHOD 04/25/2025 12:29 PM [facility] Lymphocytes Absolute 3.19 1.00 - 5.00 K/mcL LAB HEMETOLOGY METHOD 04/25/2025 12:29 PM [facility] Monocytes Absolute 0.58 0.20 - 1.00 K/mcL LAB HEMETOLOGY METHOD 04/25/2025 12:29 PM EDT [facility] Eosinophils Absolute 0.20 0.00 - 0.50 K/[facility] LAB HEMETOLOGY METHOD 04/25/2025 12:29 PM EDT [facility] Basophils Absolute 0.05 0.00 - 0.20 K/[facility] LAB HEMETOLOGY METHOD 04/25/2025 12:29 PM EDT [facility] Immature Granulocytes Absolute 0.08(H) 0.00 - 0.03 K/[facility] LAB HEMETOLOGY METHOD 04/25/2025 12:29 PM EDT [facility] Blood Venous blood specimen / Unknown Venipuncture / Unknown 04/25/2025 9:39 AM EDT 04/25/2025 9:39 AM EDT us Smith Dixon MD LAB BLOOD ORDERA BLES Final Result [facility] [address] [place] [address], [place] [phone] * Iron and TIBC (04/25/2025 9:39 AM EDT) Iron 65 40 - 150 mcg/dL LAB CHEMISTRY METHOD 04/25/2025 3:05 PM EDT [facility] TIBC 347 250 - 450 mcg/dL LAB CHEMISTRY METHOD 04/25/2025 3:05 PM EDT [facility] Iron Saturation 19 15 - 50 % LAB CHEMISTRY METHOD 04/25/2025 3:05 PM EDT [facility] Blood Venous blood specimen / Unknown Venipuncture / Unknown 04/25/2025 9:39 AM EDT 04/25/2025 9:39 AM EDT us Smith Dixon MD LAB BLOOD ORDERA BLES Final Result [facility] [address] [place] [address], [place] [phone] * Hemoglobin A1c (04/25/2025 9:39 AM EDT) [facility] Hemoglobin A1C 6.4 <6.5 % LAB CHEMISTRY METHOD 04/25/2025 2:26 PM EDT [facility] Mean Bld Glu Estim. 137 mg/dL LAB CHEMISTRY METHOD 04/25/2025 2:26 PM EDT [facility] Blood Venous blood specimen / Unknown Venipuncture / Unknown 04/25/2025 9:39 AM EDT 04/25/2025 9:39 AM EDT Smith Dixon MD LAB BLOOD ORDERA BLES Final Result [facility] [address] [place] [address], [place] [phone] * Ferritin (04/25/2025 9:39 AM EDT) [facility] Ferritin 49 8 - 252 ng/mL LAB CHEMISTRY METHOD 04/25/2025 3:05 PM EDT [facility] Blood Venous blood specimen / Unknown Venipuncture / Unknown 04/25/2025 9:39 AM EDT 04/25/2025 9:39 AM EDT Smith Dixon MD LAB BLOOD ORDERA BLES Final Result [facility] [address] [place] [address], [place] [phone] * (ABNORMAL) Comprehensive metabolic panel (04/25/2025 9:39 AM EDT) [facility] Sodium 137 133 - 145 mmol/L LAB CHEMISTRY METHOD 04/25/2025 3:05 PM [facility] Potassium 3.8 3.5 - 5.5 mmol/L LAB CHEMISTRY METHOD 04/25/2025 3:05 PM [facility] Chloride 105 96 - 110 mmol/L LAB CHEMISTRY METHOD 04/25/2025 3:05 PM [facility] CO2 25 21 - 32 mmol/L LAB CHEMISTRY METHOD 04/25/2025 3:05 PM [facility] Anion Gap 7 3 - 11 LAB CHEMISTRY METHOD 04/25/2025 3:05 PM [facility] Glucose 106(H) 70 - 100 mg/dL LAB CHEMISTRY METHOD 04/25/2025 3:05 PM [facility] BUN 11 5 - 25 mg/dL LAB CHEMISTRY METHOD 04/25/2025 3:05 PM [facility] Creatinine 0.82 0.50 - 1.10 mg/dL LAB CHEMISTRY METHOD 04/25/2025 3:05 PM [facility] eGFR 91 >=60 mL/min/1. 73m2 LAB CHEMISTRY METHOD 04/25/2025 3:05 PM [facility] Comment:Calculation based on the Chronic Kidney Disease Epidemiology Collaboration (CKD-EPI) equation refit without adjustment for race. BUN/Creatinine Ratio 13.4 LAB CHEMISTRY METHOD 04/25/2025 3:05 PM [facility] Calcium 9.3 8.5 - 10.5 mg/dL LAB CHEMISTRY METHOD 04/25/2025 3:05 PM [facility] AST (SGOT) 9(L) 10 - 42 unit/L LAB CHEMISTRY METHOD 04/25/2025 3:05 PM [facility] ALT (SGPT) 22 10 - 60 unit/L LAB CHEMISTRY METHOD 04/25/2025 3:05 PM [facility] Alkaline Phosphatase 101 42 - 121 unit/L LAB CHEMISTRY METHOD 04/25/2025 3:05 PM EDT [facility] Total Protein 6.7 6.0 - 8.0 g/dL LAB CHEMISTRY METHOD 04/25/2025 3:05 PM EDT [facility] Albumin 3.4 3.2 - 5.0 g/dL LAB CHEMISTRY METHOD 04/25/2025 3:05 PM EDT [facility] Total Bilirubin 0.4 0.0 - 1.4 mg/dL LAB CHEMISTRY METHOD 04/25/2025 3:05 PM EDT [facility] Blood Venous blood specimen / Unknown Venipuncture / Unknown 04/25/2025 9:39 AM EDT 04/25/2025 9:39 AM EDT Smith Dixon MD LAB BLOOD ORDERA BLES Final Result [facility] [address] [place] [address], [place] [phone] * XR Lumbar Spine 4+ Views (04/18/2025 10:05 AM EDT) Anatomical Region Laterality Modality Spine, L-spine Radiographic Veronica ging 04/19/2025 8:31 AM EDT Impressions 04/19/2025 8:32 AM EDT No acute fracture or dislocation of the lumbar spine. -------- FINAL REPORT -------- Dictated By: Tania Duque Dictated Date: 04/19/2025 08:31 ET Assigned Physician: Tania Duque Reviewed and Electronically Signed By: Tania Duque Signed Date: 04/19/2025 08:32 ET Workstation ID: [id number] Transcribed By: Self Edit Transcribed Date: 04/19/2025 08:31 ET Narrative 04/19/2025 8:32 AM EDT HISTORY: low back pain TECHNIQUE: 4 views of the lumbar spine COMPARISON: Lumbar spine radiograph from 05/02/2023 FINDINGS: Vertebral body height and disc spaces are preserved. No acute fracture or dislocation is seen. The spinal alignment is well maintained without evidence of spondylolisthesis. The sacroiliac joints are unremarkable. Large amount of stool throughout the colon. Surgical alisa overlying the right upper quadrant. IUD device overlies the pelvis. Procedure Note Tania Duque MD - 04/19/2025 HISTORY: low back pain TECHNIQUE: 4 views of the lumbar spine COMPARISON: Lumbar spine radiograph from 05/02/2023 FINDINGS: Vertebral body height and disc spaces are preserved. No acute fracture ordislocation is seen. The spinal alignment is well maintained withoutevidence of spondylolisthesis. The sacroiliac joints are unremarkable.Large amount of stool throughout the colon. Surgical alisa overlying theright upper quadrant. IUD device overlies the pelvis. IMPRESSION: No acute fracture or dislocation of the lumbar spine. -------- FINAL REPORT -------- Dictated By: Tania Duque Dictated Date: 04/19/2025 08:31 ET Assigned Physician: Tania Duque Reviewed and Electronically Signed By: Tania Duque Signed Date: 04/19/2025 08:32 ET Workstation ID: [id number] Transcribed By: Self Edit Transcribed Date: 04/19/2025 08:31 ET Miladis REHMAN IMG XR PROCEDURES Final Resul t * DIAGNOSTIC MAMMOGRAPHY WITH CAD UNILATERAL (08/02/2024 10:33 AM EDT) Anatomical Region Laterality Modality Mammography 08/01/2024 12:2 0 PM EDT Narrative 08/02/2024 11:15 AM EDT This is a summary report. The complete report is available in the patient's medical record. If you cannot access the medical record, please contact the sending organization for a detailed fax or copy. RIGHT DIGITAL DIAGNOSTIC 3D MAMMOGRAM HISTORY: Workup for lower inner focal asymmetry TECHNIQUE: CC and MLO spot compression views 3D, full-field ML CAD was used COMPARISON: Mammogram from 08/01/2024 FINDINGS: Right breast lower inner focal asymmetry persists on spot compression. Sonographic evaluation demonstrates a probably benign 3:00 cystic lesion which corresponds to mammographic finding. Density: B RIGHT BREAST TARGETED ULTRASOUND EVALUATION HISTORY: Workup for lower inner focal asymmetry TECHNIQUE: Ultrasonographic examination is performed using a linear array transducer. Targeted right breast ultrasound was performed from 3:00 to 6:00 to evaluate mammographic finding. Real-time sonographic scanning was also performed by the radiologist. FINDINGS: At 3:00, there is a 0.4 x 0.3 x 0.4 cm cystic lesion with multiple small echoes which corresponds to mammographic finding and is probably benign. Impression: Mammographic finding corresponds to a probably benign 3:00 cystic lesion BI-RADS Category 3 probably benign Recommendation: Targeted right breast ultrasound at 3:00 in [address] [id number] Procedure Note Tania Duque MD - 08/11/2024 This is a summary report. The complete report is available in thepatient's medical record. If you cannot access the medical record, pleasecontact the sending organization for a detailed fax or copy. RIGHT DIGITAL DIAGNOSTIC 3D MAMMOGRAM HISTORY: Workup for lower inner focal asymmetry TECHNIQUE: CC and MLO spot compression views 3D, full-field ML CAD was used COMPARISON: Mammogram from 08/01/2024 FINDINGS: Right breast lower inner focal asymmetry persists on spot compression.Sonographic evaluation demonstrates a probably benign 3:00 cystic lesionwhich corresponds to mammographic finding. Density: B RIGHT BREAST TARGETED ULTRASOUND EVALUATION HISTORY: Workup for lower inner focal asymmetry TECHNIQUE: Ultrasonographic examination is performed using a linear arraytransducer. Targeted right breast ultrasound was performed from 3:00 to6:00 to evaluate mammographic finding. Real-time sonographic scanning wasalso performed by the radiologist. FINDINGS: At 3:00, there is a 0.4 x 0.3 x 0.4 cm cystic lesion with multiple smallechoes which corresponds to mammographic finding and is probably benign. Impression: Mammographic finding corresponds to a probably benign 3:00 cystic lesion BI-RADS Category 3 probably benign Recommendation: Targeted right breast ultrasound at 3:00 in [address] [id number] us Smith Dixon MD IMG BI PROCEDURE S Final Result * Pap smear (04/17/2019) 04/17/2019 Narrative HISTORICAL TESTING LAB RESULTING AGENCY - 04/23/2019 1:10 PM EDT [id number] THINPREP PAP, IMAGED: LOW-GRADE SQUAMOUS INTRAEPITHELIAL LESION (LSIL) . LILY HARO(ASCP) (CASE SCREENED 04 19 2019) KELLY HUSTON M.D. , PATHOLOGIST (CASE ELECTRONICALLY SIGNED 04 20 2019) RESULT OF APTIMA HIGH RISK HPV ASSAY: HIGH RISK HPV: POSITIVE (SEROTYPES 16,18,31,33,35,39,45,51,52,56,58,59,66,68) COMPLETED ON 2019-04-19 ADEQUACY: SATISFACTORY ENDOCERVICAL/TRANSFORMATION ZONE COMPONENT PRESENT. SOURCE: THINPREP PAP HPV ANY DX: REFLEX 16 AND 18, CERVICAL, IMAGED CLINICAL INFORMATION: HPV ANY DIAGNOSIS. PAP HX NEG, Z12.4 us Gabby Mcwilliams MD LAB CYTOLOGY ORDERABLES Final Result HISTORICAL TESTING LAB RESULTING AGENCY from Last 3 Months or Most Recently Relevant to Health Maintenance Insurance [facility] [employer] Care Teams Disability Case Manager Relationship Specialty Start Date End Date Smith Dixon MD [address] [place] [id number] PCP - General 04/22/23
== END 2025-05-30 14:14 | disposition home or self-care (01) ==
PROVIDERS: Emergency Provider Emergency Medicine; PCP Family Medicine
DX: L03.011 Cellulitis of right finger (principal); Z79.899 Other long term (current) drug therapy
CPT/HCPCS: 73140; 99282; 99283

== ENCOUNTER → 2025-05-30 13:37 | Outpatient (BNV) | payer OTHER, SELFPAY | PROVIDERS: Emergency Provider Emergency Medicine; PCP Family Medicine; Visit Provider Radiology Diagnostic Radiology | DX: M79.644 Pain in right finger(s) (principal); R22.31 Localized swelling, mass and lump, right upper limb | CPT/HCPCS: 73140 ==